=== PATIENT | female | born 1945 | race Caucasian/White ===

== ENCOUNTER 2019-06-29 11:42 | Inpatient (IN) | payer BC, MEDICARE ==
[2019-06-29] VITALS (8 sets, daily range): BP systolic 146–167; BP diastolic 64–91
[~2019-06-29] VITALS: Ht 167.6 cm; Wt 72.6 kg
[~2019-06-29 11:42] MED LIST: Z TEKTURNA HCT; Z.0.ALLEGRA180 MG; Z.0.ZOCOR40 MG; [UNRECOGNIZED DRUG - OTHER]
[2019-06-29 12:23] LABS: BASOPHILS # (AUTO) 0.1 (0.0-0.1); BASOPHILS % 0.8 % (0.0-1.0); EOSINOPHILS # (AUTO) 0.1 (0.0-0.4); EOSINOPHILS % 0.8 % (0.0-6.0); HEMATOCRIT 23.8 % (34.2-44.1); LYMPHOCYTES # (AUTO) 1.9 (1.0-3.2); LYMPHOCYTES % 23.8 % (18.0-39.1); MEAN CORPUSCULAR HEMOGLOBIN 15.4 pg (28-32); MEAN CORPUSCULAR HGB CONC 25.6 g/dL (31-35); MEAN CORPUSCULAR VOLUME 59.9 fL (81-99); MONOCYTES # (AUTO) 0.8 (0.2-0.8); MONOCYTES % 10.4 % (4.4-11.3); NEUTROPHILS # (AUTO) 5.1 (2.1-6.9); NEUTROPHILS % 63.7 % (38.7-80.0); PLATELET COUNT 419 x10e3/uL (140-360); RED BLOOD COUNT 3.97 x10e6/uL (3.6-5.1); RED CELL DISTRIBUTION WIDTH 21.1 % (11.7-14.4)
[2019-06-29 12:26] LABS: HEMOGLOBIN 6.1 g/dL (12.0-16.0)
[2019-06-29] MEDS ORDERED: FUROSEMIDE INJ 10 MG/ML 2 ML VIAL IV PRN (12:30)
[2019-06-29] MEDS ORDERED: SODIUM CHLORIDE 0.9% 250ML 250 ML IV ONE ×2 (12:30→16:30)
[2019-06-29 12:36] LABS: INR 1.03; PARTIAL THROMBOPLASTIN TIME 27.7 seconds (23.8-35.5)
[2019-06-29 12:42] LABS: ALANINE AMINOTRANSFERASE 9 IU/L (0-55); ALBUMIN 3.6 g/dL (3.5-5.0); ALBUMIN/GLOBULIN RATIO 0.9 (0.8-2.0); ALKALINE PHOSPHATASE 96 IU/L (40-150); ANION GAP 13.6 mmol/L (8-16); BLOOD UREA NITROGEN 15 mg/dL (7-26); BUN/CREATININE RATIO 19 (6-25); CALCIUM 9.4 mg/dL (8.4-10.2); CARBON DIOXIDE 24 mmol/L (22-29); CHLORIDE 101 mmol/L (98-107); CREATINE KINASE 80 IU/L (29-168); CREATININE, SERUM 0.78 mg/dL (0.57-1.11); EST GLOMERULAR FILTRATION RATE > 60 ML/MIN (60-); GLUCOSE 120 mg/dL (74-118); MAGNESIUM 1.9 MG/DL (1.3-2.1); POTASSIUM 3.6 mmol/L (3.5-5.1); SODIUM 135 mmol/L (136-145)
--- NOTE | 2019-06-29 13:09 | Diagnostic Imaging Report ---
EXAMINATION: CHEST SINGLE (PORTABLE) INDICATION: Trauma COMPARISON: None FINDINGS: LINES/TUBES:None LUNGS:The lungs are well-inflated. No focal consolidation or pulmonary edema. PLEURA:No pleural effusion or pneumothorax. MEDIASTINUM:The cardiomediastinal silhouette appears normal in size and shape. Atherosclerotic calcifications of the thoracic aorta. BONES/SOFT TISSUES:No acute osseous injury. ABDOMEN:No free air under the diaphragm. IMPRESSION: No radiographic evidence of acute traumatic injury to the thorax. Signed by: Alexey Paez MD on 06/29/2019 1:05 PM
--- NOTE | 2019-06-29 13:20 | Diagnostic Imaging Report ---
CT BRAIN WO HISTORY: Fall COMPARISON: None. Technique: Noncontrast axial scans were obtained from skull base to the vertex. Coronal and sagittal reconstructions obtained from the axial data. One or more of the following dose reduction techniques were used: Automated exposure control, adjustment of the mA and/or kV according to patient size, and/or utilization of iterative reconstruction technique. DISCUSSION: Scalp/Skull: Unremarkable. Brain sulci: Mildly prominent. Ventricles: Compensatory dilatation. Extra-axial spaces: No masses or fluid collections. Carotid siphon calcifications are present. Parenchyma: Mild bilateral deep white matter hypodensity is likely chronic microvascular ischemic change. Otherwise, no masses, hemorrhage, or large vascular territory acute infarct. Dural sinuses: No abnormal densities. Sellar/Suprasellar region: Intact. Skull base: Intact. Incidental findings: Bilateral ocular lens replacement. IMPRESSION: 1. No acute intracranial abnormalities. 2. Mild supratentorial chronic microvascular ischemic change. Mild generalized cerebral volume loss. Signed by: Dr. Drew Pryor M.D. on 06/29/2019 1:17 PM
[2019-06-29 13:22] LABS: BILIRUBIN,URINE NEGATIVE (NEGATIVE); CLARITY,URINE CLEAR (CLEAR); COLOR,URINE YELLOW (YELLOW); KETONES,URINE NEGATIVE (NEGATIVE); LEUKOCYTE ESTERASE ,URINE SMALL (NEGATIVE); NITRITE,URINE NEGATIVE (NEGATIVE); PROTEIN,URINE DIPSTICK NEGATIVE (NEGATIVE); URINE UROBILINOGEN 0.2 mg/dL (0.2 - 1)
--- NOTE | 2019-06-29 13:25 | Diagnostic Imaging Report ---
CT CERVICAL SPINE WO HISTORY: Fall COMPARISON: None. TECHNIQUE: CT of the cervical spine without contrast. Sagittal and coronal reformations were created. One or more of the following dose reduction techniques were used: Automated exposure control, adjustment of the mA and/or kV according to patient size, and/or utilization of iterative reconstruction technique. FINDINGS: Cervical lordosis is preserved. There is no significant scoliosis. No definite acute fracture or compression deformity is seen. The craniocervical junction is intact. No gross spinal canal masses are seen. The paravertebral and paraspinal soft tissues are unremarkable. Mild multilevel spondylotic changes are present. Multilevel bilateral facet arthrosis is associated with grade 1 anterolisthesis of C5 on C6. Mild atlantoaxial arthrosis is present as well. Mild to moderate bilateral carotid bulb calcified plaque is present. IMPRESSION: No acute osseous abnormalities. Mild multilevel spondylosis. Signed by: Dr. Drew Pryor M.D. on 06/29/2019 1:22 PM
[2019-06-29 13:43] LABS: BACTERIA,URINE RARE /HPF; WBC,URINE (MAN) 0-5 /HPF (0-5)
[2019-06-29 13:44] LABS: EPITHELIAL CELLS,URINE FEW /LPF
[2019-06-29 15:13] LABS: HYPOCHROMASIA SLIGHT; PLATELET ESTIMATE SLIGHTLY INCREASED; PLATELET MORPHOLOGY COMMENT NORMAL; RBC MORPHOLOGY COMMENT NORMAL
[2019-06-29 15:14] LABS: OVALOCYTES FEW
--- NOTE | 2019-06-29 15:43 | Diagnostic Imaging Report ---
EXAMINATION: FOOT RIGHT COMPLETE INDICATION: Trauma COMPARISON: None FINDINGS: No acute fracture or dislocation. Alignment is anatomic. Minimal scattered degenerative changes. Soft tissues appear unremarkable. IMPRESSION: No acute osseous injury. Signed by: Alexey Paez MD on 06/29/2019 3:40 PM
[2019-06-29] MEDS ORDERED: ACETAMINOPHEN/CODEINE 300MG - 30MG TAB PO ONE ×2 (16:15→16:30)
[2019-06-29] MEDS ORDERED: PANTOPRAZOLE 40 MG 10ML VIAL IV SCH (16:30)
--- NOTE | 2019-06-29 17:50 | NUR ---
RECEIVED PATIENT FROM ER. PATIENT A/O X3, EVEN RESPIRATIONS ON RA. LUNG SOUNDS CLEAR TO AUSCULTATION. TELEMETRY #29 SR 77. LEFT AC 20 GAUGE IV SL. PATIENT ON BEDREST AT THIS TIME. RIGHT ANKLE EDEMA AND BRUISING. NO PAIN VOICED AT THIS TIME. SKIN INTACT. ORIENTED PATIENT TO ROOM AND CALL LIGHT. BED LOW, WHEELS LOCKED, SIDE RAILS X2. CALL LIGHT IN REACH WILL CONTINUE TO MONITOR PATIENT.
--- OUTSIDE RECORDS SUMMARY | 2019-06-29 18:06 | XMS REPORT ---
Author [facility] Address Unknown Phone Unavailable Care Team Providers Care Technical Sourcing Recruiter Name Role Phone Divina RAMESH Unavailable Unavailable Problems This patient has no known problems. Allergies, Adverse Reactions, Alerts This patient has no known allergies or adverse reactions. Medications This patient has no known medications. Results Test Description Test Time Test Comments Text Results Atomic Results Result Comments FOOT RIGHT COMPLETE 2019-06-29 14:54:00 [place] [address] Patient Name: DOUG GOMEZ MR #: [id number] : 1945 Age/Sex: 73/F Req #: [id number] Adm Physician: Ordered by: LOUANN ROSE NP Report #: [id number] Location: ER Room/Bed: Procedure: [id number] DX/FOOT RIGHT COMPLETE Exam Date: 06/29/19 Exam Time: 1230 REPORT STATUS: Signed EXAMINATION: FOOT RIGHT COMPLETE INDICATION: Trauma COMPARISON: None FINDINGS: No acute fracture or dislocation. Alignment is anatomic. Minimal scattered degenerative changes. Soft tissues appear unremarkable. IMPRESSION: No acute osseous injury. Signed by: Patrick Mccarthy MD on 06/29/2019 3:40 PM Dictated By: PATRICK MCCARTHY MD [id number] Transcribed By: ZOIE on 06/29/19 7098 COPY TO: LOUANN ROSE NP CT CERVICAL SPINE WO 2019-06-29 13:17:00 [place] [address] Patient Name: DOUG GOMEZ MR #: [id number] : 1945 Age/Sex: 73/F Req #: [id number] Adm Physician: Ordered by: LOUANN ROSE NP Report #: [id number] Location: ER Room/Bed: Procedure: [id number] CT/CT CERVICAL SPINE WO Exam Date: 06/29/19 Exam Time: 1230 REPORT STATUS: Signed CT CERVICAL SPINE WO HISTORY: Fall COMPARISON : None. TECHNIQUE: CT of the cervical spine without contrast. Sagittal and coronal reformations were created. One or more of the following dose reduction techniques were used: Automated exposure control, adjustment of the mA and/or kV according to patient size, and/or utilization of iterative reconstruction technique. FINDINGS: Cervical lordosis is preserved. There is no significant scoliosis. No definite acute fracture or compression deformity is seen. The craniocervical junction is intact. No gross spinal canal masses are seen. The paravertebral and paraspinal soft tissues are unremarkable. Mild multilevel spondylotic changes are present. Multilevel bilateral facet arthrosis is associated with grade 1 anterolisthesis of C5 on C6. Mild atlantoaxial arthrosis is present as well. Mild to moderate bilateral carotid bulb calcified plaque is present. IMPRESSION: No acute osseous abnormalities. Mild multilevel spondylosis. Signed by: Dr. Drew Pryor M.D. on 06/29/2019 1:22 PM Dictated By: DREW PRYOR MD 1322 Transcribed By: ZOIE on 06/29/19 1322 COPY TO: LOUANN ROSE NP CT BRAIN WO 2019-06-29 13:15:00 [place] [address] Patient Name: DOUG GOMEZ MR #: [id number] : 1945 Age/Sex: 73/F Req #: [id number] Adm Physician: Ordered by: LOUANN ROSE REAL ESTATE RECRUITER Report #: [id number] Location: ER Room/Bed: Procedure: [id number] CT/CT BRAIN WO Exam Date: 06/29/19 Exam Time: 1230 REPORT STATUS: Signed CT BRAIN WO HISTORY: Fall COMPARISON: None. Te chnique: Noncontrast axial scans were obtained from skull base to the vertex. Coronal and sagittal reconstructions obtained from the axial data. One or more of the following dose reduction techniques were used: Automated exposure control, adjustment of the mA and/or kV according to patient size, and/or utilization of iterative reconstruction technique. DISCUSSION: Scalp/Skull: Unremarkable. Brain sulci: Mildly prominent. Ventricles: Compensatory dilatation. Extra-axial spaces: No masses or fluid collections. Carotid siphon calcifications are present. Parenchyma: Mild bilateral deep white matter hypodensity is likely chronic microvascular ischemic change. Otherwise, no masses, hemorrhage, or large vascular territory acute infarct. Dural sinuses: No abnormal densities. Sellar/Suprasellar region: Intact. Skull base: Intact. Incidental findings: Bilateral ocular lens replacement. IMPRESSION: 1. No acute intracranial abnormalities. 2. Mild supratentorial chronic microvascular ischemic change. Mild generalized cerebral volume loss. Signed by: Dr. Drew Pryor M.D. on 06/29/2019 1:17 PM Dictated By: DREW PRYOR MD 16 Transcribed By: ZOIE on 06/29/191316 COPY TO: LOUANN ROSE NP CHEST SINGLE (PORTABLE) 2019-06-29 13:04:00 [place] [address] Patient Name: DOUG GOMEZ MR #: [id number] : 1945 Age/Sex: 73/F Req #: [id number] Adm Physician: Ordered by: LOUANN ROSE NP Report #: [id number] Location: ER Room/Bed: Procedure: [id number] DX/CHEST SINGLE (PORTABLE) Exam Date: Exam Time: REPORT STATUS: Signed EXAMINATION: CHEST SINGLE (PORTABLE) INDICATION: Tra suhail COMPARISON: None FINDINGS: LINES/TUBES:None LUNGS:The lungs are well-inflated. No focal consolidation or pulmonary edema. PLEURA:No pleural effusion or pneumothorax. MEDIASTINUM:The cardiomediastinal silhouette appears normal in size and shape. Atherosclerotic calcifications of the thoracic aorta. BONES/SOFT TISSUES:No acute osseous injury. ABDOMEN:No free air under the diaphragm. IMPRESSION: No radiographic evidence of acute traumatic injury to the thorax. Signed by: Patrick Mccarthy MD on 06/29/2019 1:05 PM Dictated By: PATRICK MCCARTHY MD 04 Transcribed By: ZOIE on 06/29/191304 COPY TO: LOUANN ROSE NP
[2019-06-29] MEDS: PANTOPRAZOLE 40 MG 10ML VIAL IV SCH (18:50)
--- NOTE | 2019-06-29 19:00 | NUR ---
RECEIVED PATIENT IN BEDSIDE REPORT. PATIENT RESTING IN BED. NO PAIN REPORTED PATIENT RECENTLY RECEIVED PAIN MEDICATION. NO S&S OF DISTRESS NOTED. BED LOCKED IN LOWEST POSITION, SIDE RAILS UPX2, CALL LIGHT IN REACH.
[2019-06-29 19:38] LABS: CREATINE KINASE MB 1.8 ng/mL (0-5.0)
[2019-06-29] MEDS ORDERED: RANEXA500 MG PO (20:32)
[2019-06-29] MEDS ORDERED: ASPIRIN EC81 MG PO (20:32)
[2019-06-29] MEDS ORDERED: ATORVASTATIN CA20 MG PO (20:32)
[2019-06-29] MEDS ORDERED: EFFIENT10 MG PO (20:32)
[2019-06-29] MEDS ORDERED: METOPROLOL TART50 MG PO (20:32)
--- NOTE | 2019-06-29 20:39 | NUR ---
PAGED MD Sarah TORRES FOR ORDERS. AWAITING CALL BACK.
[2019-06-29] MEDS ORDERED: SODIUM CHLORIDE 0.9% 250ML 500 ML ONE (21:22)
--- NOTE | 2019-06-29 22:48 | NUR ---
FIRST UNIT OF BLOOD STARTED AT THIS TIME. VERIFIED BY THIS NURSE AND Dave FLEMING RN. NO S&S OF TRANSFUSION REACTION NOTED. TRANSFUSION RUNNING AT 80 ML/HR.
[2019-06-29] MEDS: ACETAMINOPHEN/CODEINE 300MG - 30MG TAB PO PRN (23:20)
[2019-06-30] VITALS (15 sets, daily range): BP systolic 122–175; BP diastolic 61–91
--- NOTE | 2019-06-30 00:01 | NUR ---
PATIENT'S TEMP AT 2348, ONE HOUR AFTER STARTING BLOOD TRANSFUSION NOTED TO BE 99.9, UP FROM 99.5 JUST PRIOR TO START OF TRANSFUSION. REMOVED EXTRA BLANKETS. RECHECKED TEMP AT THIS TIME, NOTED TO BE 99.0. NO REACTIONS NOTED. WILL CONTINUE TO MONITOR CLOSELY.
[2019-06-30] MEDS: FUROSEMIDE INJ 10 MG/ML 2 ML VIAL IV PRN ×2 (01:40→05:15)
--- NOTE | 2019-06-30 01:40 | NUR ---
FIRST UNIT OF BLOOD COMPLETED AT THIS TIME. 296 ML TRANSFUSED. NO REACTIONS NOTED. LASIX 20 MG IV ADMINISTERED POST TRANSFUSION PER ORDERS. ADDITIONAL UNIT TO INFUSE.
--- NOTE | 2019-06-30 02:40 | NUR ---
SECOND UNIT OF BLOOD STARTED TRANSFUSING AT THIS TIME. VERIFIED BY THIS NURSE AND Dave FLEMING RN. NO S&S OF TRANSFUSION REACTION NOTED.
--- NOTE | 2019-06-30 05:10 | NUR ---
2ND UNIT OF PRBCS COMPLETED AT THIS TIME. 287 ML TRANSFUSED. NO S&S OF TRANSFUSION REACTION NOTED. 20MG LASIX IV ADMINISTERED PER ORDERS.
--- NOTE | 2019-06-30 07:15 | NUR ---
Rcvd patient in report this am. patient is asleep in bed at this time. no s/s of distress noted
[2019-06-30] MEDS: ACETAMINOPHEN/CODEINE 300MG - 30MG TAB PO PRN ×2 (08:18→16:19)
[2019-06-30] MEDS: PANTOPRAZOLE 40 MG 10ML VIAL IV SCH (08:21)
[2019-06-30 08:28] LABS: BASOPHILS # (AUTO) 0.1 (0.0-0.1); BASOPHILS % 0.8 % (0.0-1.0); EOSINOPHILS # (AUTO) 0.2 (0.0-0.4); EOSINOPHILS % 2.1 % (0.0-6.0); HEMATOCRIT 33.3 % (34.2-44.1); HEMOGLOBIN 9.2 g/dL (12.0-16.0); LYMPHOCYTES % 27.6 % (18.0-39.1); MEAN CORPUSCULAR HEMOGLOBIN 18.1 pg (28-32); MEAN CORPUSCULAR HGB CONC 27.6 g/dL (31-35); MEAN CORPUSCULAR VOLUME 65.4 fL (81-99); MONOCYTES # (AUTO) 0.9 (0.2-0.8); MONOCYTES % 12.9 % (4.4-11.3); NEUTROPHILS # (AUTO) 4.1 (2.1-6.9); PLATELET COUNT 334 x10e3/uL (140-360); RED BLOOD COUNT 5.09 x10e6/uL (3.6-5.1); RED CELL DISTRIBUTION WIDTH 25.5 % (11.7-14.4)
[2019-06-30 08:49] LABS: ALANINE AMINOTRANSFERASE 8 IU/L (0-55); ALBUMIN 3.7 g/dL (3.5-5.0); ALBUMIN/GLOBULIN RATIO 0.9 (0.8-2.0); ALKALINE PHOSPHATASE 102 IU/L (40-150); ANION GAP 19.7 mmol/L (8-16); BLOOD UREA NITROGEN 12 mg/dL (7-26); BUN/CREATININE RATIO 13 (6-25); CALCIUM 9.4 mg/dL (8.4-10.2); CARBON DIOXIDE 25 mmol/L (22-29); CHLORIDE 97 mmol/L (98-107); CREATININE, SERUM 0.89 mg/dL (0.57-1.11); EST GLOMERULAR FILTRATION RATE > 60 ML/MIN (60-); GLUCOSE 107 mg/dL (74-118); POTASSIUM 3.7 mmol/L (3.5-5.1); SODIUM 138 mmol/L (136-145)
[2019-06-30 10:45] LABS: ANISOCYTOSIS MODERATE; HYPOCHROMASIA MODERATE; MICROCYTOSIS MODERATE; POIKILOCYTOSIS SLIGHT
[2019-06-30 10:46] LABS: ELLIPTOCYTE, RBC SLIGHT; PLATELET ESTIMATE ADEQUATE; RBC MORPHOLOGY COMMENT ABNORMAL; TEAR DROP CELLS FEW
[2019-06-30 10:47] LABS: PLATELET MORPHOLOGY COMMENT NORMAL; TARGET CELLS FEW
[2019-06-30 12:33] LABS: FREE THYROXINE INDEX 2.8405 (1.4-3.8); THYROID STIMULATING HORMONE 2.423 uIU/mL (0.350-4.940)
[2019-06-30] MEDS ORDERED: TYLENOL WITH C1 EACH PO (15:55)
--- NOTE | 2019-06-30 16:31 | NUR ---
IV removed at this time. Pressure dressing applied
--- NOTE | 2019-06-30 16:50 | NUR ---
Patient discharged from facility to home. Patient assisted out via staff in her wheelchair. Patient provided a surgical shoe. Reviewed discharge paperwork, follow up appts and RX's given.
--- NOTE | 2019-06-30 21:44 | Consultation ---
DATE OF CONSULTATION: 06/30/2019 REASON FOR CONSULTATION: Swelling and pain to the right foot after the patient falling from a syncope event yesterday. HISTORY OF PRESENT ILLNESS: A pleasant 73-year-old white female, who was seen at bedside accompanied by son, relates that she fell after getting a pneumonia shot and was found to be anemic when she was admitted through the hospital and was given a couple of units of blood. She has an ecchymotic very painful right foot, is not able to put any weight on it, has pain upon range of motion. PAST MEDICAL HISTORY: Remarkable for hypercholesterolemia and hypertension. PAST SURGICAL HISTORY: Remarkable for 3 heart stents, 2 different surgical interventions, appendectomy with tonsillectomy. SOCIAL HISTORY: No smoking, drinking, or recreational drug use. ALLERGIES: TO SULFA. FAMILY HISTORY: Noncontributory. CURRENT MEDICATIONS: Note listed in chart. REVIEW OF SYSTEMS: CARDIAC: Denies any palpitations or arrhythmias. RESPIRATORY: Denies any shortness of breath or productive cough. GASTROINTESTINAL: Denies any diarrhea or constipation. URINARY: Denies hematuria or problems voiding. LABORATORY DATA: Noted. She has a white blood cell count of 7.27, hemoglobin 9.2 after getting couple units of blood. She has a blood glucose of 107. X-rays were reviewed revealing a possible stress fracture to the 5th metatarsal shaft close to the tuberosity area. X-rays evaluated. PHYSICAL EXAMINATION: VITAL SIGNS: Afebrile, pulse rate 87, respirations 18, blood pressure 122/63, O2 saturation 98%. PODIATRIC: Reveals the following vasculature, pedal pulses of both the DP and PT are palpable. NEUROLOGIC: Seems to be within normal limits. MUSCULOSKELETAL: Muscle mass is asymmetrical. Some swelling and tenderness noted to the right foot with ecchymosis noted and pain overlying the 5th metatarsal tuberosity midtarsal joint area. DERMATOLOGIC: No breaks in the skin noted. ASSESSMENT: Stress fracture, 5th metatarsal with ecchymosis capsulitis. PLAN: An [place] bandage was applied, surgical shoe will be dispensed. The patient instructed to limit her weightbearing. We will follow up within the next 1 to 2 weeks for re-x-ray to evaluate healing. Okay to go home if okay with Dr. Bruno. GRACIELA Lala/OTILIOL /[id number]
--- NOTE | 2019-06-30 23:50 | Consultation ---
DATE OF CONSULTATION: 06/30/2019 HISTORY OF PRESENT ILLNESS: Yolie Walsh is a 73-year-old white female, referred to me for evaluation of anemia. The patient claimed that she had pneumonia vaccine at the pharmacy subsequently she passed out. Subsequently, was rushed to the ER, was found to be very anemic. Subsequently referred to me for further evaluation and treatment after having had two blood transfusions. HISTORY OF PAST ILLNESS: History of anemia. The patient claimed that she was at [place] approximately five years back for the same problem and had colonoscopy as the patient claimed that she does not remember which physician did a colonoscopy. According to her, the patient did have a normal colonoscopy. SOCIAL HISTORY: Noncontributory. FAMILY HISTORY: Noncontributory. ALLERGIES: REPORTED NONE. MEDICATIONS: At this time: 1. Tylenol with codeine. 2. Protonix. 3. Lasix. 4. Sodium chloride. REVIEW OF SYSTEMS: HEENT: Normal. CARDIAC: Normal. RESPIRATORY: Normal. GI : According to her normal. : Normal. MUSCULOSKELETAL: Normal. SKIN AND BREASTS: Normal. NEUROENDOCRINE: Essentially normal. DIETARY HISTORY: Breakfast is coffee and a toast, lunch is salad, evening meals usually have meat. PHYSICAL EXAMINATION: GENERAL: A moderately built female, very anemic no palpable adenopathy. HEART: Within normal limits. LUNGS: Clear. BREASTS: Normal. ABDOMEN: Soft. RECTAL AND VAGINAL: Deferred. CENTRAL NERVOUS SYSTEM: Essentially normal. EXTREMITIES: Essentially normal. LABORATORY DATA: Shows a hemoglobin of 6.1, hematocrit of 23.8, MCV 59.9, MCHC 25.6, RDW 21.1, platelets high at 419,000 with a white count of 7970 with the differential being normal. Retic response is low at 0.8%. Chemistry shows a sodium of 135, potassium 3.6, chloride is 101, CO2 24, BUN 15, creatinine 0.78, glucose 120, calcium 9.4, magnesium 1.9, bilirubin 1.5, SGOT 17, SGPT 9, alkaline phosphatase 96, total protein 7.7, albumin 3.6, globulins 4.1. CAT scan of the brain is reported normal. CAT scan of the cervical spine is reported normal. Chest x-ray reported normal. X-ray of the foot reported normal. IMPRESSION: 1. Iron deficiency anemia. 2. Syncope because of iron deficiency. PLAN: This is pure iron-deficiency anemia. I will suggest INFeD as outpatient. I will calculate out the dose of the INFeD. A CT scan of the abdomen and pelvis is suggested. Upper and lower endoscopies are suggested as outpatient. Thank you very much for allowing me to participate in management of this patient. Radha Pollcak MD MAQ/MODL /[id number] cc: Frederick Bruno MD
== END 2019-06-30 17:05 | disposition home or self-care (01) | DRG 812 ==
LOC: ER 11:42 → ERHOLD 16:29 → ER 17:51 → MED/SURG 18:05
PROC: 30233N1 Transfusion of Nonautologous Red Blood Cells into Peripheral Vein, Percutaneous Approach (ICD-10-PCS; principal; 2019-06-29)
DX: D50.9 Iron deficiency anemia, unspecified (principal); R55 Syncope and collapse; D64.9 Anemia, unspecified; M84.374A Stress fracture, right foot, initial encounter for fracture; M77.41 Metatarsalgia, right foot; W19.XXXA Unspecified fall, initial encounter; E78.5 Hyperlipidemia, unspecified; I10 Essential (primary) hypertension
CPT/HCPCS: 36415; 70450; 71045; 72125; 80053; 81001; 82270; 82550; 82553; 82607; 83540; 83735; 83880; 84436; 84443; 84466; 84479; 84484; 85025; 85045; 85610; 85730; 86850; 86900; 86920; 93005; 99284; J1940; J7050; P9016

== ENCOUNTER 2019-12-31 10:46 | Inpatient (IN) | payer MEDICARE, OTHER ==
[~2019-12-31] VITALS: Ht 167.6 cm; Wt 74.4 kg
[~2019-12-31 10:46] MED LIST changes: +ASPIRIN EC81 MG PO; +ATORVASTATIN CA20 MG PO; +EFFIENT10 MG PO; +METOPROLOL TART50 MG PO; +RANEXA500 MG PO; +TYLENOL WITH C1 EACH PO
--- OUTSIDE RECORDS SUMMARY | 2019-12-31 10:52 | XMS REPORT ---
Author Author [facility] t Organization [facility] Address [address] [place] [address] Phone Unavailable Care Team Providers Care Mental Hygienist Name Role Phone NO, PCP PCP Unavailable Ferdinand Alanis MD Attphys PIPPA AHN Attphys Unavailable Divina RAMESH Attphys Unavailable Payers Payer Name Policy Type Policy Number Effective Date Expiration Date S conor MEDICAREMEDICARE PART A AND Bxxxxxxxxxxx/08/2012-[place] 2013 00:00:00 [facility] Medicare A & B [id number] 2013 00:00:[address] [facility] Problems Condition Name Condition Details Condition Category Status Onset Date Resolution Date Last Treatment Date Treating Clinician Comments Source Celiac artery stenosis Celiac artery stenosis Disease Active 2019-09-27 00:00:00 Last Assessment & Plan: Patient with asymptomatic celiac artery stenosis. Medical management sounds good. She will return to our clinic as needed. Donnie Yazidi Anemia Anemia Problem Active [facility] Syncope Syncope Problem Active [facility] Allergies, Adverse Reactions, Alerts Allergy Name Allergy Type Status Severity Reaction(s) Onset Date Inacti ve Date Treating Clinician Comments Source Sulfa (Sulfonamide Antibiotics) Propensity to adverse reactions to drug Active Rash, Other (See Comments) 2019-09-27 00:00:00 Organ failure [place] [facility] SULFA Allergy to Substance Active Severe ORGAN SHUTDOWN 2011-02-28 0 0:00:[address] [facility] Family History Family Member Diagnosis Comments Start Date Stop Date Source Natural brother Cancer [facility] ethodist Natural father Alzheimer's disease [place] Natural mother Cancer [facility] Natural sister Cancer [place] [facility] Social History Social Habit Start Date Stop Date Quantity Comments Source History SDOH Alcohol Std Drinks Donnie Hernandezist History SDOH Alcohol Binge Donnie Marion Sex Assigned At [place] Alcohol intake 2019-09-27 00:00:00 2019-09-27 00:00:00 Ex-drinker (fi nding) Donnie Hernandezist History SDOH Alcohol Frequency 2019-09-27 00:00:00 2019-09-27 00:00:0 0 1 Donnie Marion Smoking Status Start Date Stop Date Source Never smoker Donnie lieberman Medications Ordered Medication Name Filled Medication Name Start Date Stop Da te Current Medication? Ordering Clinician Indication Dosage Frequency Signature (SIG) Comments Components Source omeprazole/sodium bicarbonate (ZEGERID ORAL) 2019-09-27 14:40:30 Yes Take by mouth. Donnie lieberman aspirin (ECOTRIN) 81 MG enteric coated tablet 2019-09-27 14:40:3 0 Yes 81mg QD Take 81 mg by mouth daily. H milo Marion prasugreL (EFFIENT) 10 mg tablet 2019-08-12 00:00:00 Yes Donnie Marion atorvastatin (LIPITOR) 40 MG tablet 2019-08-12 00:00:00 Yes Donnie Marion metoprolol tartrate (LOPRESSOR) 50 mg tablet 2019-08-12 00:00:00 Yes Donnie lieberman Acetaminophen With Codeine (Tylenol With Codeine #3 Ta blet) 1 Each Tablet Acetaminophen With Codeine (Tylenol With Codeine #3 Tablet) 1 Each Tablet Yes 300 Every 6 Hours as needed for Mild Pain (1 -3) Or Fever>100.[address] [facility] Aspirin (Aspirin Ec) 81 Mg Tablet. Aspirin (Aspirin Ec) 81 Mg Tab let. Yes [address] [facility] Atorvastatin Calcium 20 Mg Tablet Atorvastatin Calcium 20 Mg Tablet Yes 40 Twice A Day [facility] Metoprolol Tartrate 50 Mg Tablet Metoprolol Tartrate 50 Mg Tablet Yes 50 Twice A Day [facility] Prasugrel Hcl (Effient) 10 Mg Tablet Prasugrel Hcl (Effient) 10 Mg Tablet Yes [address] [facility] Ranolazine (Ranexa) 500 Mg Tabsr Ranolazine (Ranexa) 500 Mg Tabsr Yes 500 Twice A Day [facility] Aliskiren/Hydrochlorothiazide (Tekturna Hct 150-12.5 M g Tab) 1 Each Tablet, Aliskiren/Hydrochlorothiazide (Tekturna Hct 150-12.5 Mg Tab) 1 Each Tablet, 2019-06-29 00:00:00 No Daily [facility] Esomeprazole Sodium (Nexium I.v.) 40 Mg Vial, Esomepra zole Sodium (Nexium I.v.) 40 Mg Vial, 2019-06-29 00:00:00 No Daily [facility] Fexofenadine Hcl (Kristi) 180 Mg Tablet, Fexofenadine Hcl (Kristi) 180 Mg Tablet, 2019-06-29 00:00:00 No Daily [facility] Simvastatin (Zocor) 40 Mg Tablet, Simvastatin (Zocor) 40 Mg Tabl et, 2019-06-29 00:00:00 No Daily [facility] Vital Signs Vital Name Observation Time Observation Value Comments Source Systolic blood pressure 2019-09-27 14:33:00 163 mm[Hg] [place] [facility] Diastolic blood pressure 2019-09-27 14:33:00 87 mm[Hg] [facility] Heart rate 2019-09-27 14:33:00 89 /min [facility] Body temperature 2019-09-27 14:33:00 36.83 [place] [facility] Body height 2019-09-27 14:33:00 165.1 cm [facility] Body weight 2019-09-27 14:33:00 78.2 kg [facility] BMI 2019-09-27 14:33:00 28.69 kg/m2 [facility] Procedures Procedure Date / Time Performed Performing Clinician [facility] e CT ABD/PELVIC EXTERNAL STUDY 2019-08-09 08:38:00 Chetna Alanis in [facility] Computed tomography of brain without radiopaque contrast 201 04-14-26 00:00:[address] [facility] Computed tomography of cervical spine without contrast 06-29 00:00:[address] [facility] Plan of Care Planned Activity Planned Date Details Comments Source Future Scheduled Test 2020-03-04 00:00:00 INFLUENZA VACCINE [code = INFLUENZA VACCINE] [facility] Future Scheduled Test 2012-11-12 00:00:00 65+ PNEUMOCOCCAL V ACCINE (2 of 2 - PPSV23) [code = 65+ PNEUMOCOCCAL VACCINE (2 of 2 - PPSV23)] [facility] Future Scheduled Test 1997-11-12 00:00:00 BREAST CANCER SCRE ENING [code = BREAST CANCER SCREENING] [facility] Future Scheduled Test 1997-11-12 00:00:00 COLONOSCOPY SCREEN ING [code = COLONOSCOPY SCREENING] [facility] Future Scheduled Test 1997-11-12 00:00:00 SHINGLES VACCINES (#1) [code = SHINGLES VACCINES (#1)] [facility] Encounters Start Date/Time End Date/Time Encounter Type Admission Type Attendi [facility] Care Department Encounter ID Source 2019-10-04 00:00:00 2019-10-04 00:00:00 Outpatient [facility] [id number] [facility] 2019-09-27 00:00:00 2019-09-27 00:00:00 Outpatient CHETNA ALANIS [facility] [id number] [facility] 2019-06-29 16:29:00 2019-06-30 17:05:00 Discharged Inpatient [address] [facility] [id number] [facility] Results Test Description Test Time Test Comments Results Result Comments Source CT Abd/Pelvic External Study 2019-10-04 09:49:08 This exam was not acquired at a Yazidi facility and has not been interpreted by a Yazidi Provider. The exam was imported into our imaging system[facility] W 2019-08-09 11:25:00 [facility] [address] [place] [address] Patient Name: DOUG GOMEZ MR #: [id number] : 1945 Age/Sex: 73/F Req #: [id number] Adm Physician: Ordered by: PIPPA AHN MD Report #: [id number] Location: CT Room/Bed: Procedure: [id number] CT/CT ABDOMEN/PELVIS W Exam Date: 08/09/19 Exam Time: 829 REPORT STATUS: Signed EXAM: CT Abdomen and Pelvis WITH intravenous contrast INDICATION: Anemia COMPARISON: None. TECHNIQUE: Abdomen and pelvis were scanned utilizing a multidetector helical scanner from the lung base to the pubic symphysis after administration of IV contrast. Coronal and sagittal reformations were obtained. Routine protocol was performed. Scan was performed during portal venous phase. IV CONTRAST: 100mL of Isovue 370 ORAL CONTRAST: Water RADIATION DOSE: Total DLP: 475.6 mGy*cm Dose modulation, iterative reconstruction, and/or weight based adjustment of the mA/kV was utilized to reduce the radiation dose to as low as reasonably achievable. FINDINGS: LOWER THORAX: Bibasilar subsegmental atelectasis. HEPATOBILIARY: Mild diffuse hepatic steatosis. No focal liver lesions. No biliary ductal dilation. Unremarkable gallbladder. SPLEEN: No splenomegaly. PANCREAS: No focal masses or ductal dilatation. ADRENALS: No adrenal nodules. KIDNEYS/URETERS: No hydronephrosis, stones, or solid mass lesions. PELVIC ORGANS/BLADDER: Unremarkable. PERITONEUM / RETROPERITONEUM: No free air or fluid. LYMPH NODES: No lymphadenopathy. VESSELS: Moderate atherosclerotic calcifications of the abdominal aorta and major branches. Focal atherosclerotic plaque at the celiac origin resulting in critical stenosis of the celiac artery. There is distal reconstitution, likely from collaterals from the SMA. GI TRACT: No abnormal bowel thickening. No bowel obstruction. BONES AND SOFT TISSUES: No acute osseous injury. No suspicious lytic or blastic lesions. Mild degenerative changes of the visualized spine. IMPRESSION: No acute findings in the abdomen or pelvis. Mild diffuse hepatic steatosis. Focal atherosclerotic plaque at the celiac origin resulting in critical stenosis. Signed by: Patrick Mccarthy MD on 08/09/2019 11:32 AM Dictated By: PATRICK MCCARTHY MD 1132 Transcribed By: ZOIE on 08/09/19 1132 COPY TO: PIPPA ANH MD Vitamin B12 Level 2019-06-30 12:49:00 Test Item Vitamin B12 Level (test code = 42925-9) [address] Thyroxine Ekpsu3952-81-08 12:38:00* Test Item Value Reference Range Interpretation Comments Free Thyroxine Index (test code = 84785-9) 2.8405 1.4-3.[address] [facility] HospitalThyroxine (T4)2019-06-30 12:38:00* Test Item Value Reference Range Interpretation Comments Thyroxine (T4) (test code = 3026-2) 8.70 4.5-10.9 Our current method for Total T4 is not recommended for use as the only marker fo r evaluating patients for thyroid disorders.[facility] HospitalTriiodothyronine (T3) Hwzxjx2151-05-74 12:38:00* Test Item Value Reference Range Interpretation Comments Triiodothyronine (T3) Uptake (test code = 3050-2) 32.65 22.5 -37.[address] [facility] HospitalThyroid Stimulating Hormone (TSH) 2019-06-30 12:38:00* Test Item Value Reference Range Interpretation Comments Thyroid Stimulating Hormone (TSH) (test code = 06272-7) 2.423 0.350-4.[address] HospitalIron Reoxy1522-11-73 12:15:00* Test Item Value Reference Range Interpretation Comments Iron Level (test code = 2498-4) 21 50-[address] [facility] HospitalTotal Iron Binding Iiuoejry1945 12:15:00* Test Item Value Reference Range Interpretation Comments Total Iron Binding Capacity (test code = 2500-7) 498 261-[address] [facility] HospitalPercent Iron Djbhsujcrq3704-21-36 12:15:00* Test Item Value Reference Range Interpretation Comments Percent Iron Saturation (test code = 2502-3) 4 15-[address] [facility] HospitalTransferrin2019-11-27 12:15:00* Test Item Value Reference Range Interpretation Comments Transferrin (test code = 3034-6) 356 180-[address] [facility] HospitalPercent Reticulocyte Ecwzg6880-77-80 12:00:00* Test Item Value Reference Range Interpretation Comments Percent Reticulocyte Count (test code = 56365-2) 0.8 0.8-[address] [facility] HospitalPlatelet Lwumfopv7612-02-06 10:49:00* Test Item Value Reference Range Interpretation Comments Platelet Estimate (test code = 05644-2) ADEQUATE [facility] HospitalPlatelet Morphology Jbfcmqg3312-40-54 10:49:00* Test Item Value Reference Range Interpretation Comments Platelet Morphology Comment (test code = 10885-9) NORMAL [facility] HospitalHypochromasia2019-11-27 10:49:00* Test Item Value Reference Range Interpretation Comments Hypochromasia (test code = 728-6) MODERATE [facility] HospitalPoikilocytosis2019-11-27 10:49:00* Test Item Value Reference Range Interpretation Comments Poikilocytosis (test code = 779-9) SLIGHT [facility] HospitalAnisocytosis2019-11-27 10:49:00* Test Item Value Reference Range Interpretation Comments Anisocytosis (test code = 702-1) MODERATE [facility] HospitalMicrocytosis2019-11-27 10:49:00* Test Item Value Reference Range Interpretation Comments Microcytosis (test code = 741-9) MODERATE [facility] HospitalTarget Voqxm1190-67-45 10:49:00* Test Item Value Reference Range Interpretation Comments Target Cells (test code = 26721-3) FEW [facility] HospitalTear Drop Hlxdi0564-53-84 10:49:00* Test Item Value Reference Range Interpretation Comments Tear Drop Cells (test code = 7791-7) FEW [facility] HospitalElliptocytes2019-11-27 10:49:00* Test Item Value Reference Range Interpretation Comments Elliptocytes (test code = 71054-3) SLIGHT [facility] HospitalRed Cell Morphology Imdddbm4409-98-04 10:49:00* Test Item Value Reference Range Interpretation Comments Red Cell Morphology Comment (test code = 6742-1) ABNORMAL [facility] Wulsy9252-79-10 08:51:00* Test Item Value Reference Range Interpretation Comments Sodium Level (test code = 2951-2) 138 136-[address] [facility] HospitalPotassium Crkwp1463-00-35 08:51:00* Test Item Value Reference Range Interpretation Comments Potassium Level (test code = 2823-3) 3.7 3.5-5.[address] HospitalChloride Phiju0543-97-76 08:51:00* Test Item Value Reference Range Interpretation Comments Chloride Level (test code = 2075-0) 97 98-[address] HospitalCarbon Dioxide Xenur0131-14-75 08:51:00* Test Item Value Reference Range Interpretation Comments Carbon Dioxide Level (test code = 2028-9) [facility] HospitalAnion Zln0952-98-70 08:51:00* Test Item Value Reference Range Interpretation Comments Anion Gap (test code = 52016-1) 19.7 8-[address] [facility] HospitalBlood Urea Qxdtudbe5698-85-09 08:51:00* Test Item Value Reference Range Interpretation Comments Blood Urea Nitrogen (test code = 3094-0) 12 02-[address] HospitalCreatinine2019-11-27 08:51:00* Test Item Value Reference Range Interpretation Comments Creatinine (test code = 2160-0) 0.89 0.57-1.[address] [facility] HospitalBUN/Creatinine Bfwgw6855-06-58 08:51:00* Test Item Value Reference Range Interpretation Comments BUN/Creatinine Ratio (test code = 3097-3) 13 01-[address] [facility] HospitalEstimat Glomerular Filtration Rate 2019-06-30 08:51:00* Test Item Value Reference Range Interpretation Comments Estimat Glomerular Filtration Rate (test code = 963031457) > 60 >60 Ranges were taken from the National Kidney Disease Education Program and the [facility] and the [facility] literature.Reference ranges:60 or greater: Veqhqz01-22 ( for 3 consecutive months): Chronic kidney disease 15 or less: Kidney failureCHI St[facility] HospitalGlucose Dqrou1197-73-19 08:51:00* Test Item Value Reference Range Interpretation Comments Glucose Level (test code = LIX0130) 107 74-[address] HospitalCalcium Islbg3323-91-99 08:51:00* Test Item Value Reference Range Interpretation Comments Calcium Level (test code = 55908-1) 9.4 8.4-10.[address] [facility] HospitalTotal Hmlxhuypm3264-13-48 08:51:00* Test Item Value Reference Range Interpretation Comments Total Bilirubin (test code = 1975-2) 1.0 0.2-1.[address] [facility] HospitalAspartate Amino Transf (AST/SGOT) 2019-06-30 08:51:00* Test Item Value Reference Range Interpretation Comments Aspartate Amino Transf (AST/SGOT) (test code = Aspartate Amino Transf (AST/SGOT)) 17 5-[address] [facility] HospitalAlanine Aminotransferase (ALT/SGPT) 2019-06-30 08:51:00* Test Item Value Reference Range Interpretation Comments Alanine Aminotransferase (ALT/SGPT) (test code = 1742-6) 8 0-55 [facility] Zzpaayi1772-27-01 08:51:00* Test Item Value Reference Range Interpretation Comments Total Protein (test code = 2885-2) 8.0 6.5-8.[address] [facility] HospitalAlbumin2019-11-27 08:51:00* Test Item Value Reference Range Interpretation Comments Albumin (test code = 1751-7) 3.7 3.5-5.[address] [facility] HospitalGlobulin2019-11-27 08:51:00* Test Item Value Reference Range Interpretation Comments Globulin (test code = 12119-7) 4.3 2.3-3.[address] [facility] HospitalAlbumin/Globulin Cbhom0343-08-89 08:51:00 * Test Item Value Reference Range Interpretation Comments Albumin/Globulin Ratio (test code = 1759-0) 0.9 0.8-2.[address] HospitalAlkaline Qxargruezrk1585-80-48 08:51:00* Test Item Value Reference Range Interpretation Comments Alkaline Phosphatase (test code = 6768-6) 102 40-[address] HospitalWhite Blood Dxcda7018-14-70 08:46:00* Test Item Value Reference Range Interpretation Comments White Blood Count (test code = 6690-2) 7.27 4.8-10.[address] HospitalRed Blood Qowuh9906-09-73 08:46:00* Test Item Value Reference Range Interpretation Comments Red Blood Count (test code = 789-8) 5.09 3.6-5.[address] HospitalHemoglobin2019-11-27 08:46:00* Test Item Value Reference Range Interpretation Comments Hemoglobin (test code = 42648-3) 9.2 12.0-16.[address] HospitalHematocrit2019-11-27 08:46:00* Test Item Value Reference Range Interpretation Comments Hematocrit (test code = 4544-3) 33.3 34.2-44.[address] HospitalMean Corpuscular Zgigdf8190-49-31 08:46:00* Test Item Value Reference Range Interpretation Comments Mean Corpuscular Volume (test code = 787-2) 65.4 81-[address] HospitalMean Corpuscular Dcbixdlvbn3267-57-55 08:46:00* Test Item Value Reference Range Interpretation Comments Mean Corpuscular Hemoglobin (test code = 785-6) 18.1 28-[address] HospitalMean Corpuscular Hemoglobin Concent 2019-06-30 08:46:00* Test Item Value Reference Range Interpretation Comments Mean Corpuscular Hemoglobin Concent (test code = 786-4) 27.6 31-[address] HospitalRed Cell Distribution Cvvlc4662-48-58 08:46:00* Test Item Value Reference Range Interpretation Comments Red Cell Distribution Width (test code = 51504-3) 25.5 11.7 -14.[address] [facility] HospitalPlatelet Tyojt8566-45-61 08:46:00* Test Item Value Reference Range Interpretation Comments Platelet Count (test code = 777-3) 334 140-[address] [facility] [facility] HospitalNeutrophils (%) (Auto)2019-06-30 08:46:00 * Test Item Value Reference Range Interpretation Comments Neutrophils (%) (Auto) (test code = 93109-9) 56.0 38.7-80.[address] HospitalLymphocytes (%) (Auto)2019-06-30 08:46:00 * Test Item Value Reference Range Interpretation Comments Lymphocytes (%) (Auto) (test code = 736-9) 27.6 18.0-39.[address] [facility] HospitalMonocytes (%) (Auto)2019-06-30 08:46:00* Test Item Value Reference Range Interpretation Comments Monocytes (%) (Auto) (test code = 5905-5) 12.9 4.4-11.[address] HospitalEosinophils (%) (Auto)2019-06-30 08:46:00 * Test Item Value Reference Range Interpretation Comments Eosinophils (%) (Auto) (test code = 713-8) 2.1 0.0-6.[address] [facility] HospitalBasophils (%) (Auto)2019-06-30 08:46:00* Test Item Value Reference Range Interpretation Comments Basophils (%) (Auto) (test code = 706-2) 0.8 0.0-1.[address] [facility] HospitalIM GRANULOCYTES %2019-06-30 08:46:00* Test Item Value Reference Range Interpretation Comments IM GRANULOCYTES % (test code = IM GRANULOCYTES %) 0.6 0.0- 1.[address] [facility] [facility] HospitalNeutrophils # (Auto)2019-06-30 08:46:00* Test Item Value Reference Range Interpretation Comments Neutrophils # (Auto) (test code = 751-8) 4.1 2.1-6.[address] HospitalLymphocytes # (Auto)2019-06-30 08:46:00* Test Item Value Reference Range Interpretation Comments Lymphocytes # (Auto) (test code = 46699-2) 2.0 1.0-3.[address] [facility] HospitalMonocytes # (Auto)2019-06-30 08:46:00* Test Item Value Reference Range Interpretation Comments Monocytes # (Auto) (test code = 742-7) 0.9 0.2-0.[address] HospitalEosinophils # (Auto)2019-06-30 08:46:00* Test Item Value Reference Range Interpretation Comments Eosinophils # (Auto) (test code = 711-2) 0.2 0.0-0.[address] [facility] HospitalBasophils # (Auto)2019-06-30 08:46:00* Test Item Value Reference Range Interpretation Comments Basophils # (Auto) (test code = 704-7) 0.1 0.0-0.[address] [facility] HospitalAbsolute Immature Granulocyte (auto 2019-06-30 08:46:00* Test Item Value Reference Range Interpretation Comments Absolute Immature Granulocyte (auto (marni t code = Absolute Immature Granulocyte (auto) 0.04 0-0.[address] HospitalCreatine Kinase [id number] 19:42:00* Test Item Value Reference Range Interpretation Comments Creatine Kinase MB (test code = 06446-2) 1.80 0-5.[address] [facility] HospitalTroponin [id number] 19:42:00* Test Item Value Reference Range Interpretation Comments Troponin I (test code = LBZ5087) 0.007 0-0.[address] [facility] HospitalCreatine Zxpdgs8455-86-16 19:31:00* Test Item Value Reference Range Interpretation Comments Creatine Kinase (test code = 2157-6) 68 29-[address] [facility] HospitalPlatelet Xufyckkx0547-16-49 15:15:00* Test Item Value Reference Range Interpretation Comments Platelet Estimate (test code = 36941-2) SLIGHTLY INCREASED [facility] HospitalPlatelet Morphology Kucwxqy6947-48-19 15:15:00* Test Item Value Reference Range Interpretation Comments Platelet Morphology Comment (test code = 08234-9) NORMAL [facility] HospitalHypochromasia2019-11-26 15:15:00* Test Item Value Reference Range Interpretation Comments Hypochromasia (test code = 728-6) SLIGHT [facility] HospitalMacrocytosis2019-11-26 15:15:00* Test Item Value Reference Range Interpretation Comments Macrocytosis (test code = 738-5) SLIGHT [facility] HospitalOvalocytes2019-11-26 15:15:00* Test Item Value Reference Range Interpretation Comments Ovalocytes (test code = 774-0) FEW [facility] HospitalRed Cell Morphology Llfidfb0374-68-71 15:15:00* Test Item Value Reference Range Interpretation Comments Red Cell Morphology Comment (test code = 6742-1) NORMAL [facility] HospitalMacrocytosis2019-11-26 15:15:00* Test Item Value Reference Range Interpretation Comments Macrocytosis (test code = 738-5) SLIGHT [facility] HospitalOvalocytes2019-11-26 15:15:00* Test Item Value Reference Range Interpretation Comments Ovalocytes (test code = 774-0) FEW [facility] HospitalFOOT RIGHT UPWBFEJL5959-05-60 14:54:00 [facility] [address] [place] [address] Patient Name: DOUG GOMEZ MR #: [id number] : 1945 Age/Sex: 73/F Req #: [id number] Adm Physician: Ordered by: LOUANN ROSE APPLIANCE WORKER Report #: [id number] Location: ER Room/Bed: Procedure: [id number] DX/ FOOT RIGHT COMPLETE Exam Date: 06/29/19 Exam Time: 1 230 REPORT STATUS: Signed EXAMIN ATION: FOOT RIGHT COMPLETE INDICATION: Trauma COMPARISON: None FINDINGS: No acute fracture or dislocation. Alignment is anatomic. Minimal scattered degenerative changes. Soft tissues appear unremarkable. IMPRESSION: No acute osseous injury. Signed by: Patrick Mccarthy MD on 06/29 3:40 PM Dictated By: PATRICK MCCARTHY MD 154 Transcribed By: ZOIE on 06/29/19 1540 COPY T O: LOUANN ROSE APPLIANCE WORKER Stool Occult Gsdrh5719-96-58 14:30:00* Test Item Value Reference Range Interpretation Comments Stool Occult Blood (test code = 2335-8) [facility]IVE [facility] Osewh0195-94-55 14:30:00* Test Item Value Reference Range Interpretation Comments Stool Occult Blood (test code = 2335-8) NEGATIVE NEGATIVE [facility] [id number] 13:44:00* Test Item Value Reference Range Interpretation Comments Urine WBC (test code = 5821-4) 0-5 0-[address] [facility] [id number] 13:44:00* Test Item Value Reference Range Interpretation Comments Urine RBC (test code = 90640-8) NONE 0-[address] [facility] [facility] [facility] Hospital[facility] Hzbqzdpz7729-06-53 13:44:00* Test Item Value Reference Range Interpretation Comments Urine Bacteria (test code = 13839-2) RARE NONE [facility] Epithelial Koxky6232-96-63 13:44:00 * Test Item Value Reference Range Interpretation Comments Urine Epithelial Cells (test code = 70175-4) FEW NONE [facility] [id number] 13:44:00* Test Item Value Reference Range Interpretation Comments Urine WBC (test code = 5821-4) 0-5 0-[address] [facility] Hospital[facility] [id number] 13:44:00* Test Item Value Reference Range Interpretation Comments Urine RBC (test code = 41569-1) NONE 0-[address] [facility] [facility] Wrkhbqte2081-76-19 13:44:00* Test Item Value Reference Range Interpretation Comments Urine Bacteria (test code = 99727-0) RARE NONE [facility] Epithelial Mgayx3513-49-91 13:44:00 * Test Item Value Reference Range Interpretation Comments Urine Epithelial Cells (test code = 88881-7) FEW NONE [facility] Voyeo2927-15-78 13:31:00* Test Item Value Reference Range Interpretation Comments Urine Color (test code = 5778-6) YELLOW YELLOW [facility] Rxljpus9952-86-33 13:31:00* Test Item Value Reference Range Interpretation Comments Urine Clarity (test code = 59822-6) CLEAR CLEAR [facility] Specific Jvmxfiu0026-59-37 13:31:00 * Test Item Value Reference Range Interpretation Comments Urine Specific [place] (test code = 5811-5) 1.010 1.010-1.[address] [facility] [facility] [id number] 13:31:00* Test Item Value Reference Range Interpretation Comments Urine pH (test code = 49225-5) 7 5-[address] [facility] Leukocyte Kzapgfap4350-26-05 13:31:00* Test Item Value Reference Range Interpretation Comments Urine Leukocyte Esterase (test code = 15814-0) SMALL NEGATIV E [facility] Wtvnfak0598-63-63 13:31:00* Test Item Value Reference Range Interpretation Comments Urine Nitrite (test code = 30590-7) NEGATIVE NEGATIVE [facility] Iszvxyj7463-41-81 13:31:00* Test Item Value Reference Range Interpretation Comments Urine Protein (test code = 10477-1) NEGATIVE NEGATIVE [facility] Glucose (UA)2019-06-29 13:31:00* Test Item Value Reference Range Interpretation Comments Urine Glucose (UA) (test code = 39704-8) NEGATIVE NEGATIVE [facility] Tylckdu5267-13-77 13:31:00* Test Item Value Reference Range Interpretation Comments Urine Ketones (test code = 27622-8) NEGATIVE NEGATIVE [facility] Spknkrbjiqlw7385-40-86 13:31:00* Test Item Value Reference Range Interpretation Comments Urine Urobilinogen (test code = 45765-5) 0.2 0.2-[address] [facility] Hrgvalxou2797-57-65 13:31:00* Test Item Value Reference Range Interpretation Comments Urine Bilirubin (test code = 1977-8) NEGATIVE NEGATIVE [facility] Dcugx6521-58-08 13:31:00* Test Item Value Reference Range Interpretation Comments Urine Blood (test code = 23112-3) NEGATIVE NEGATIVE [facility] Nqlmf0656-10-96 13:31:00* Test Item Value Reference Range Interpretation Comments Urine Color (test code = 5778-6) YELLOW YELLOW [facility] Cltxqov2860-23-70 13:31:00* Test Item Value Reference Range Interpretation Comments Urine Clarity (test code = 25152-8) CLEAR CLEAR [facility] Specific Jrmckgn7709-42-53 13:31:00 * Test Item Value Reference Range Interpretation Comments Urine Specific [place] (test code = 5811-5) 1.010 1.010-1.[address] [facility] [id number] 13:31:00* Test Item Value Reference Range Interpretation Comments Urine pH (test code = 46865-8) 7 5-[address] Leukocyte Feompvdy8812-34-93 13:31:00* Test Item Value Reference Range Interpretation Comments Urine Leukocyte Esterase (test code = 17020-5) SMALL NEGATIV E [facility] Iertweb4642-27-31 13:31:00* Test Item Value Reference Range Interpretation Comments Urine Nitrite (test code = 44100-3) NEGATIVE NEGATIVE [facility] Eseiwnq5195-96-34 13:31:00* Test Item Value Reference Range Interpretation Comments Urine Protein (test code = 70326-9) NEGATIVE NEGATIVE [facility] Glucose (UA)2019-06-29 13:31:00* Test Item Value Reference Range Interpretation Comments Urine Glucose (UA) (test code = 04411-9) NEGATIVE NEGATIVE [facility] Pskiqcv6261-51-99 13:31:00* Test Item Value Reference Range Interpretation Comments Urine Ketones (test code = 02211-7) NEGATIVE NEGATIVE [facility] Iubtmthtrvhu6694-07-74 13:31:00* Test Item Value Reference Range Interpretation Comments Urine Urobilinogen (test code = 55355-3) 0.2 0.2-[address] Ggtkkuznv8709-84-48 13:31:00* Test Item Value Reference Range Interpretation Comments Urine Bilirubin (test code = 1977-8) NEGATIVE NEGATIVE [facility] Ckbxm1422-71-77 13:31:00* Test Item Value Reference Range Interpretation Comments Urine Blood (test code = 17967-0) NEGATIVE NEGATIVE [facility] HospitalCT CERVICAL SPINE [id number] 13:17:00 [place] [address] Patient Name: DOUG GOMEZ MR #: [id number] : 1945 Age/Sex: 73/F Req #: [id number] Adm Physician: Ordered by: LOUANN ROSE APPLIANCE WORKER Report #: [id number] Location: ER Room/Bed: Procedure: [id number] CT/ CT CERVICAL SPINE WO Exam Date: 06/29/19 Exam Time: 1230 REPORT STATUS: Signed CT CE RVICAL SPINE WO HISTORY: Fall COMPARISON: None. TECHNIQUE: CT of the cervical spine without contrast. Sagittal and coronal reformations were created. One or more of the following dose reduction techniques were used: Au tomated exposure control, adjustment of the mA and/or kV according to patient size, and/or utilization of iterative reconstruction technique. FINDINGS: Cervical lordosis is preserved. There is no significant scoliosis. No definite acute fracture or compression deformity is seen. The craniocer vical junction is intact. No gross spinal canal masses are seen. The parav ertebral and paraspinal soft tissues are unremarkable. Mild multilevel spo ndylotic changes are present. Multilevel bilateral facet arthrosis is associat ed with grade 1 anterolisthesis of C5 on C6. Mild atlantoaxial arthrosis is pr esent as well. Mild to moderate bilateral carotid bulb calcified plaque is present. IMPRESSION: No acute osseous abnormalities. Mild multilevel sp ondylosis. Signed by: Dr. Drew Pryor M.D. on 06/29/2019 1:22 PM Dictated By: DREW PRYOR MD 1322 Transcribed By: ZOIE on 06/29/19 1322 COPY TO: LOUANN SINGLETON NP CT BRAIN [id number] 13:15:00 [place] [address] Patient Name: DOUG GOMEZ MR #: [id number] : 1945 Age/Sex: 73/F Req #: [id number] Adm Physician: Ordered by: LOUANN ROSE NP Report #: [id number] Location: ER Room/Bed: Procedure: [id number] CT/ CT BRAIN WO Exam Date: 06/29/19 Exam Time: 1230 REPORT STATUS: Signed CT BRAIN WO HISTORY: Fall COMPARISON: None. Technique: Noncontrast axial sc ans were obtained from skull base to the vertex. Coronal and sagittal reconst ructions obtained from the axial data. One or more of the following dose redu ction techniques were used: Automated exposure control, adjustment of the mA a nd/or kV according to patient size, and/or utilization of iterative reconstruc tion technique. DISCUSSION: Scalp/Skull: Unremarkable. Brain sulci: Mildly prominent. Ventricles: Compensatory dilatation. Extra-axial spaces: N o masses or fluid collections. Carotid siphon calcifications are present. Parenchyma: Mild bilateral deep white matter hypodensity is likely chronic m icrovascular ischemic change. Otherwise, no masses, hemorrhage, or large va scular territory acute infarct. Dural sinuses: No abnormal densities. Se llar/Suprasellar region: Intact. Skull base: Intact. Incidental findings: Bi lateral ocular lens replacement. IMPRESSION: 1. No acute intracranial ab normalities. 2. Mild supratentorial chronic microvascular ischemic change. Mi ld generalized cerebral volume loss. Signed by: Jacobo Eller on 06/29/2019 1:17 PM Dictated By: DREW PRYOR MD 16 Transcribed By: ZOIE on 1317 COPY TO: LOUANN ROSE NP CHEST SINGLE (PORTABLE) 2019-06-29 13:04:00 [place] [address] Patient Name: DOUG GOMEZ MR #: [id number] : 1945 Age/Sex: 73/F Req #: [id number] Adm Physician: Ordered by: LOUANN ROSE NP Report #: [id number] Location: ER Room/Bed: Procedure: [id number] DX/ CHEST SINGLE (PORTABLE) Exam Date: Exam Time: REPORT STATUS: Signed EXAMINATION: CHEST SINGLE (PORTABLE) INDICATION: Trauma COMPARISON: None FINDINGS: LINES/TUBES:None LUNGS:The lungs are well-inflated. No f ocal consolidation or pulmonary edema. PLEURA:No pleural effusion or pneumo thorax. MEDIASTINUM:The cardiomediastinal silhouette appears normal in size and shape. Atherosclerotic calcifications of the thoracic aorta. BONES/S OFT TISSUES:No acute osseous injury. ABDOMEN:No free air under the diaphrag m. IMPRESSION: No radiographic evidence of acute traumatic injury to the thorax. Signed by: Patrick Mccarthy MD on 06/29/2019 1:05 PM Dictated By: PATRICK MCCARTHY MD 1308 Tr anscribed By: ZOIE on 06/29/19 130 COPY TO: LOUANN ROSE APPLIANCE WORKER Sodium Ityod7833-39-22 12:59:00* Test Item Value Reference Range Interpretation Comments Sodium Level (test code = 2951-2) 135 136-[address] HospitalPotassium Qmayt0140-41-51 12:59:00* Test Item Value Reference Range Interpretation Comments Potassium Level (test code = 2823-3) 3.6 3.5-5.[address] [facility] HospitalChloride Vlrou9589-22-44 12:59:00* Test Item Value Reference Range Interpretation Comments Chloride Level (test code = 2075-0) 101 98-[address] [facility] HospitalCarbon Dioxide Hjjfp2372-68-84 12:59:00* Test Item Value Reference Range Interpretation Comments Carbon Dioxide Level (test code = 8-9) 24 22-[address] [facility] HospitalAnion Qtn3003-25-78 12:59:00* Test Item Value Reference Range Interpretation Comments Anion Gap (test code = 63437-1) 13.6 8-[address] [facility] HospitalBlood Urea Gibnmxeo5759-46-79 12:59:00* Test Item Value Reference Range Interpretation Comments Blood Urea Nitrogen (test code = 3094-0) 15 7-[address] [facility] HospitalCreatinine2019-11-26 12:59:00* Test Item Value Reference Range Interpretation Comments Creatinine (test code = 2160-0) 0.78 0.57-1.[address] [facility] HospitalBUN/Creatinine Uqgtq5379-74-75 12:59:00* Test Item Value Reference Range Interpretation Comments BUN/Creatinine Ratio (test code = 3097-3) 19 6-[address] HospitalEstimat Glomerular Filtration Rate 2019-06-29 12:59:00* Test Item Value Reference Range Interpretation Comments Estimat Glomerular Filtration Rate (test code = 600664421) > 60 >60 Ranges were taken from the National Kidney Disease Education Program and the [facility] Kidney Foundation literature.Reference ranges:60 or greater: Trkbvn28-28 ( for 3 consecutive months): Chronic kidney disease 15 or less: Kidney failureCHI [facility] Health Hospital MansfieldGlucose Ibvlw6626-85-69 12:59:00* Test Item Value Reference Range Interpretation Comments Glucose Level (test code = OWG6661) 120 74-[address] [facility] HospitalCalcium Licvf3632-41-36 12:59:00* Test Item Value Reference Range Interpretation Comments Calcium Level (test code = 21050-7) 9.4 8.4-10.[address] [facility] HospitalMagnesium Wjkmw7553-49-58 12:59:00* Test Item Value Reference Range Interpretation Comments Magnesium Level (test code = 58156-9) 1.9 1.3-2.[address] HospitalTotal Lzaddaong0812-64-59 12:59:00* Test Item Value Reference Range Interpretation Comments Total Bilirubin (test code = 1975-2) 0.5 0.2-1.[address] HospitalAspartate Amino Transf (AST/SGOT) 2019-06-29 12:59:00* Test Item Value Reference Range Interpretation Comments Aspartate Amino Transf (AST/SGOT) (test code = Aspartate Amino Transf (AST/SGOT)) 15 5-[address] [facility] HospitalAlanine Aminotransferase (ALT/SGPT) 2019-06-29 12:59:00* Test Item Value Reference Range Interpretation Comments Alanine Aminotransferase (ALT/SGPT) (test code = 1742-6) 9 0-[address] [facility] HospitalTotal Lqvebjx8786-59-66 12:59:00* Test Item Value Reference Range Interpretation Comments Total Protein (test code = 2885-2) 7.7 6.5-8.[address] [facility] HospitalAlbumin2019-11-26 12:59:00* Test Item Value Reference Range Interpretation Comments Albumin (test code = 1751-7) 3.6 3.5-5.[address] HospitalGlobulin2019-11-26 12:59:00* Test Item Value Reference Range Interpretation Comments Globulin (test code = 25845-1) 4.1 2.3-3.[address] [facility] HospitalAlbumin/Globulin Jrwxz5889-89-65 12:59:00 * Test Item Value Reference Range Interpretation Comments Albumin/Globulin Ratio (test code = 1759-0) 0.9 0.8-2.[address] HospitalAlkaline Oirzbowqgvw7352-68-78 12:59:00* Test Item Value Reference Range Interpretation Comments Alkaline Phosphatase (test code = 6768-6) 96 40-[address] HospitalB-Type Natriuretic Vukybau6142-06-68 12:59:00* Test Item Value Reference Range Interpretation Comments B-Type Natriuretic Peptide (test code = 96848-3) 177.4 0-[address] [facility] HospitalCreatine Zpeffk7164-24-93 12:59:00* Test Item Value Reference Range Interpretation Comments Creatine Kinase (test code = 2157-6) 80 29-[address] HospitalCreatine Kinase [id number] 12:59:00* Test Item Value Reference Range Interpretation Comments Creatine Kinase MB (test code = 92865-0) 1.90 0-5.[address] HospitalTroponin [id number] 12:59:00* Test Item Value Reference Range Interpretation Comments Troponin I (test code = XMQ5641) 0.012 0-0.[address] HospitalMagnesium Zgonl5694-81-49 12:59:00* Test Item Value Reference Range Interpretation Comments Magnesium Level (test code = 44845-7) 1.9 1.3-2.[address] HospitalB-Type Natriuretic Wmxcboj2708-08-30 12:59:00* Test Item Value Reference Range Interpretation Comments B-Type Natriuretic Peptide (test code = 88801-1) 177.4 0-[address] [facility] HospitalProthrombin Fshc4299-18-75 12:40:00* Test Item Value Reference Range Interpretation Comments Prothrombin Time (test code = 5902-2) 14.0 11.9-14.[address] [facility] HospitalProthromb Time International Ratio 2019-06-29 12:40:00* Test Item Value Reference Range Interpretation Comments Prothromb Time International Ratio (test code = 6301-6) 1.03 Oral Anticoagulant Therapy INR Values:1. Low Intensity Therapy 1.5 - 2.02 . Moderate Intensity Therapy 2.0 - 3.03. High Intensity Therapy(1) 2.5 - 3. 54. High Intensity Therapy(2) 3.0 - 4.05. Panic Value INR > 5.[address] [facility] HospitalActivated Partial Thromboplast Time 2019-06-29 12:40:00* Test Item Value Reference Range Interpretation Comments Activated Partial Thromboplast Time (test code = 76287-4) 27.7 23.8-35.[address] HospitalProthrombin Nynw5461-98-83 12:40:00* Test Item Value Reference Range Interpretation Comments Prothrombin Time (test code = 5902-2) 14.0 11.9-14.[address] [facility] HospitalProthromb Time International Ratio 2019-06-29 12:40:00* Test Item Value Reference Range Interpretation Comments Prothromb Time International Ratio (test code = 6301-6) 1.03 Oral Anticoagulant Therapy INR Values:1. Low Intensity Therapy 1.5 - 2.02 . Moderate Intensity Therapy 2.0 - 3.03. High Intensity Therapy(1) 2.5 - 3. 54. High Intensity Therapy(2) 3.0 - 4.05. Panic Value INR > 5.[address] [facility] HospitalActivated Partial Thromboplast Time 2019-06-29 12:40:00* Test Item Value Reference Range Interpretation Comments Activated Partial Thromboplast Time (test code = 78392-7) 27.7 23.8-35.[address] [facility] HospitalWhite Blood Oehue9788-78-43 12:26:00* Test Item Value Reference Range Interpretation Comments White Blood Count (test code = 6690-2) 7.97 4.8-10.[address] HospitalRed Blood Oizoo8521-61-22 12:26:00* Test Item Value Reference Range Interpretation Comments Red Blood Count (test code = 789-8) 3.97 3.6-5.[address] [facility] HospitalHemoglobin2019-11-26 12:26:00* Test Item Value Reference Range Interpretation Comments Hemoglobin (test code = 96043-1) 6.1 12.0-16.0 LL Results repeated and called to DR. RAMESH at 1225 on 06/29/19 by Marco Coleman. Faith d back and verified.[facility] HospitalHematocrit2019-11-26 12:26:00* Test Item Value Reference Range Interpretation Comments Hematocrit (test code = 4544-3) 23.8 34.2-44.[address] HospitalMean Corpuscular Oyxdzj3703-05-09 12:26:00* Test Item Value Reference Range Interpretation Comments Mean Corpuscular Volume (test code = 787-2) 59.9 81-[address] [facility] HospitalMean Corpuscular Husmresgld9313-25-39 12:26:00* Test Item Value Reference Range Interpretation Comments Mean Corpuscular Hemoglobin (test code = 785-6) 15.4 28-[address] [facility] HospitalMean Corpuscular Hemoglobin Concent 2019-06-29 12:26:00* Test Item Value Reference Range Interpretation Comments Mean Corpuscular Hemoglobin Concent (test code = 786-4) 25.6 31-[address] [facility] HospitalRed Cell Distribution Qtnhd3389-01-11 12:26:00* Test Item Value Reference Range Interpretation Comments Red Cell Distribution Width (test code = 92405-6) 21.1 11.7 -14.[address] [facility] HospitalPlatelet Inoub4283-07-05 12:26:00* Test Item Value Reference Range Interpretation Comments Platelet Count (test code = 777-3) 419 140-[address] HospitalNeutrophils (%) (Auto)2019-06-29 12:26:00 * Test Item Value Reference Range Interpretation Comments Neutrophils (%) (Auto) (test code = 09251-4) 63.7 38.7-80.[address] HospitalLymphocytes (%) (Auto)2019-06-29 12:26:00 * Test Item Value Reference Range Interpretation Comments Lymphocytes (%) (Auto) (test code = 736-9) 23.8 18.0-39.[address] [facility] HospitalMonocytes (%) (Auto)2019-06-29 12:26:00* Test Item Value Reference Range Interpretation Comments Monocytes (%) (Auto) (test code = 5905-5) 10.4 4.4-11.[address] [facility] HospitalEosinophils (%) (Auto)2019-06-29 12:26:00 * Test Item Value Reference Range Interpretation Comments Eosinophils (%) (Auto) (test code = 713-8) 0.8 0.0-6.[address] [facility] HospitalBasophils (%) (Auto)2019-06-29 12:26:00* Test Item Value Reference Range Interpretation Comments Basophils (%) (Auto) (test code = 706-2) 0.8 0.0-1.[address] HospitalIM GRANULOCYTES %2019-06-29 12:26:00* Test Item Value Reference Range Interpretation Comments IM GRANULOCYTES % (test code = IM GRANULOCYTES %) 0.5 0.0- 1.[address] [facility] [facility] HospitalNeutrophils # (Auto)2019-06-29 12:26:00* Test Item Value Reference Range Interpretation Comments Neutrophils # (Auto) (test code = 751-8) 5.1 2.1-6.[address] HospitalLymphocytes # (Auto)2019-06-29 12:26:00* Test Item Value Reference Range Interpretation Comments Lymphocytes # (Auto) (test code = 71580-0) 1.9 1.0-3.[address] [facility] HospitalMonocytes # (Auto)2019-06-29 12:26:00* Test Item Value Reference Range Interpretation Comments Monocytes # (Auto) (test code = 742-7) 0.8 0.2-0.[address] [facility] HospitalEosinophils # (Auto)2019-06-29 12:26:00* Test Item Value Reference Range Interpretation Comments Eosinophils # (Auto) (test code = 711-2) 0.1 0.0-0.[address] [facility] HospitalBasophils # (Auto)2019-06-29 12:26:00* Test Item Value Reference Range Interpretation Comments Basophils # (Auto) (test code = 704-7) 0.1 0.0-0.[address] [facility] HospitalAbsolute Immature Granulocyte (auto 2019-06-29 12:26:00* Test Item Value Reference Range Interpretation Comments Absolute Immature Granulocyte (auto (marni t code = Absolute Immature Granulocyte (auto) 0.[address] [facility]
--- OUTSIDE RECORDS SUMMARY | 2019-12-31 10:52 | XMS REPORT | Clinical Summary ---
Author Author [facility] Organization [facility] Address Unknown Phone Unavailable Care Team Providers Care Chief Librarian Work With Blind Name Role Phone Wilbur Bruno MD PCP Allergies Comments Active Allergy Reactions Severity Noted Date Organ failure Sulfa (Sulfonamide Rash, Other High 09/27/2019 Antibiotics) (See Comments) Medications End Date Status Medication Sig Dispensed Refills Start Date Active prasugreL (EFFIENT) 10 mg 0 tablet 0 Active atorvastatin (LIPITOR) 40 0 MG tablet 0 Active metoprolol tartrate 0 (LOPRESSOR) 50 mg tablet 0 Active omeprazole/sodium Take by 0 bicarbonate (ZEGERID mouth. ORAL) Active aspirin (ECOTRIN) 81 MG Take 81 mg by 0 enteric coated tablet mouth daily. Active Problems Problem Noted Date Celiac artery stenosis 09/27/2019 Last Assessment & Plan: Patient with asymptomatic celiac artery stenosis. Medical management sounds good. She will return to our clinic as needed. Encounters Care Team Description Date Type Specialty Zev Amado MD 10/04/2019 Hospital Radiology Encounter Zev Amado MD Celiac artery stenosis (HCC) (Primary Dx ) 09/27/2019 Office Visit Cardiovascular Zev Amado MD 09/14/2019 Telephone Cardiovascular after 12/30/2018 Family History Medical History Relation Name Comments Cancer Brother Alzheimer's disease Father Cancer Mother Cancer Sister Relation Name Status Comments Brother Father Mother Sister Social History Date Tobacco Use Types Packs/Day Years Used Never Smoker Smokeless Tobacco: Never Used Drinks/Week oz/Week Comments Alcohol Use Not Currently Alcohol Habits Answer Date Recorded How often do you have a drink containing alcohol? Never 09/27/2019 How many drinks containing alcohol do you have on No t asked a typical day when you are drinking? How often do you have six or more drinks on one Not asked occasion? Sex Assigned at Date Recorded Not on file Industry Job Start Date Occupation Not on file Not on file Not on file Travel End Travel History Travel Start No recent travel history available. Last Filed Vital Signs Reading Time Taken Comments Vital Sign 163/87 09/27/2019 2:33 PM [employer] [facility] Blood Pressure 89 09/27/2019 2:33 PM [employer] [facility] Pulse 36.8 C (98.3 F) 09/27/2019 2:33 PM [employer] Temperature - - Respiratory Rate - - Oxygen Saturation - - Inhaled Oxygen Concentration 78.2 kg (172 lb 6.4 oz) 09/27/2019 2:33 PM [employer] [facility] Weight 165.1 cm (5' 5") 09/27/2019 2:33 PM [employer] [facility] Height 28.69 09/27/2019 2:33 PM [employer] [facility] Body Mass Index Plan of Treatment Health Maintenance Due Date Last Done Comments BREAST CANCER SCREENING 11/12/1997 COLONOSCOPY SCREENING 11/12/1997 SHINGLES VACCINES (#1) 11/12/1997 65+ PNEUMOCOCCAL VACCINE 11/12/2012 05/17/2015 (2 of 2 - PPSV23) INFLUENZA VACCINE 03/04/2020 05/17/2015 Procedures Comments Procedure Name Priority Date/Time Associated Diag nosis CT ABD/PELVIC EXTERNAL Routine 08/09/2019 STUDY 8:38 AM [facility] after 12/30/2018 Results * CT Abd/Pelvic External Study (08/09/2019 8:38 AM DIRECT[employer] [facility]) Specimen Narrative Performed At This exam was not acquired at a [facility] facility an d has not been [facility] interpreted by a [facility] Provider. The exam was imported into our imaging system. Performing Organization Address City/State/Zipcode Ph one Number [facility] [address] [place] [address] after 12/30/2018 Insurance Type Payer Benefit Subscriber ID Effective Phone Address Plan / Dates Group Medicare MEDICARE MEDICARE xxxxxxxxxxx [id number] [place], PART A AND [place] 3457 1 Advance Directives For more information, please contact: [phone] Patient Substation Technician Explanation Type Date Recorded Advance Directives, Living Will and Medical Power of Air Cargo Specialist Supervisor
[2019-12-31] MEDS ORDERED: SODIUM CHLORIDE 0.9% 1000ML 1,000 ML IV STA ×2 (11:05→12:03)
[2019-12-31] MEDS ORDERED: PANTOPRAZOLE 40 MG 10ML VIAL IV STA (11:05)
[2019-12-31] MEDS ORDERED: SKELAXIN800 MG PO (11:17)
[2019-12-31] MEDS ORDERED: ZEGERID 20 MG1 EACH (11:17)
[2019-12-31 11:27] LABS: BASOPHILS % 0.3 % (0.0-1.0); HEMOGLOBIN 14.1 g/dL (12.0-16.0); LYMPHOCYTES # (AUTO) 1.4 (1.0-3.2); LYMPHOCYTES % 8.8 % (18.0-39.1); MEAN CORPUSCULAR HEMOGLOBIN 29.1 pg (28-32); MEAN CORPUSCULAR HGB CONC 32.8 g/dL (31-35); MEAN CORPUSCULAR VOLUME 88.8 fL (81-99); MONOCYTES # (AUTO) 0.9 (0.2-0.8); MONOCYTES % 5.8 % (4.4-11.3); NEUTROPHILS # (AUTO) 12.9 (2.1-6.9); NEUTROPHILS % 83.3 % (38.7-80.0); PLATELET COUNT 196 x10e3/uL (140-360); RED BLOOD COUNT 4.84 x10e6/uL (3.6-5.1); RED CELL DISTRIBUTION WIDTH 16.1 % (11.7-14.4)
[2019-12-31 11:42] LABS: INR 1.01; PROTHROMBIN TIME 13.9 seconds (11.9-14.5)
[2019-12-31 11:43] LABS: PARTIAL THROMBOPLASTIN TIME 31.9 seconds (23.8-35.5)
[2019-12-31 11:46] LABS: CLARITY,URINE SL CLOUDY (CLEAR); COLOR,URINE YELLOW (YELLOW)
[2019-12-31 11:47] LABS: BILIRUBIN,URINE NEGATIVE (NEGATIVE); KETONES,URINE TRACE (NEGATIVE); LEUKOCYTE ESTERASE ,URINE NEGATIVE (NEGATIVE); NITRITE,URINE NEGATIVE (NEGATIVE); PROTEIN,URINE DIPSTICK 2+ (NEGATIVE); URINE UROBILINOGEN 0.2 mg/dL (0.2 - 1)
[2019-12-31 11:52] LABS: ALBUMIN 3.4 g/dL (3.5-5.0); ALBUMIN/GLOBULIN RATIO 0.8 (0.8-2.0); ANION GAP 17.4 mmol/L (8-16); CALCIUM 9.4 mg/dL (8.4-10.2); CREATININE, SERUM 1.05 mg/dL (0.57-1.11); MAGNESIUM 1.9 MG/DL (1.3-2.1); POTASSIUM 3.4 mmol/L (3.5-5.1)
[2019-12-31 11:57] LABS: BACTERIA,URINE RARE /HPF; EPITHELIAL CELLS,URINE FEW /LPF
[2019-12-31 11:59] LABS: CREATINE KINASE MB 3.3 ng/mL (0-5.0)
[2019-12-31] MEDS ORDERED: PIPER-TAZ 3.375 GM 50 ML IV SCH (12:15)
[2019-12-31 12:19] LABS: B-TYPE NATRIURETIC PEPTIDE2 155.3 pg/mL (0-100)
--- NOTE | 2019-12-31 12:19 | Diagnostic Imaging Report ---
Examination: CT head without contrast Clinical Indication: Altered mental status. Technique: Transaxial noncontrast images from the skull base through the vertex were obtained. Sagittal and coronal reformatted images were done. Dose modulation, iterative reconstruction, and/or weight based adjustment of the mA/kV was utilized to reduce the radiation dose to as low as reasonably achievable. Comparison: Head CT dated 06/29/2019. Findings: Scalp: No abnormalities. Bones: Intact. No fractures. No blastic or lytic lesions. Brain sulci: Generalized volume loss for patient's age. Ventricles: No hydrocephalus. Extra-axial space: No abnormalities. Parenchyma: Again demonstrated are confluent areas of low-attenuation within subcortical and periventricular white matter, nonspecific, but could represent microvascular ischemic disease. No masses, hemorrhage, or acute or chronic cortical based vascular insults. Suprasellar region: No abnormalities. Craniocervical junction: The foramen magnum is patent. No Chiari one malformation. Incidental findings: Atherosclerotic calcification of the cavernous and supraclinoid internal carotid and V4 segments of the bilateral vertebral arteries. Impression: 1. No acute intracranial finding when compared to prior head CT dated 06/29/2019. 2. Unchanged chronic microvascular ischemic change and volume loss. Signed by: Dr. Marah Avila M.D. on 12/31/2019 12:16 PM
--- NOTE | 2019-12-31 12:41 | Diagnostic Imaging Report ---
EXAMINATION: CHEST SINGLE (NOT PORTABLE) INDICATION: Fever COMPARISON: Chest radiograph of 06/29/2019 FINDINGS: LINES/TUBES:None LUNGS:The lungs are well-inflated. Bibasilar patchy opacities. PLEURA:No pleural effusion or pneumothorax. MEDIASTINUM:The cardiomediastinal silhouette appears unchanged in size and shape. Atherosclerotic calcifications of the thoracic aorta. BONES/SOFT TISSUES:No acute osseous injury. ABDOMEN:No free air under the diaphragm. IMPRESSION: Bibasilar patchy opacities may represent atelectasis however superimposed aspiration or pneumonia could have a similar appearance in the proper clinical setting. Signed by: Alexey Paez MD on 12/31/2019 12:37 PM
[2019-12-31] MEDS ORDERED: ACETAMINOPHEN 325 MG TAB PO ONE (12:45)
--- NOTE | 2019-12-31 13:08 | NUR ---
covid 19 sample obtained and sent to lab for testing.
--- NOTE | 2019-12-31 13:20 | Emergency Department Note ---
History of Present Illnes History of Present Illness Chief Complaint: General Medicine Complaints History of Present Illness This is a 74 year old female HERE FOR SHAKING, WEAKNESS, CONFUSION. STATES THAT SHE FEELS TO WEAK. Historian: Patient, Family Member Arrival Mode: Car Vat Washer Required: No Onset (how long ago): day(s) (3) Location: GENERALIZED Quality: WEAKNESS Radiation: non-radiation Severity: severe Onset quality: gradual Duration (how long): day(s) (3) Timing of current episode: constant Progression: worsening Chronicity: new Context: recent illness Relieving factors: none Exacerbating factors: none Associated symptoms: confusion, weakness Treatments prior to arrival: none Past Medical/Family History Physician Review I have reviewed the patient's past medical and family history. Any updates have been documented here. Past Medical History Recent Fever: No Clinical Suspicion of Infectio: Yes New/Unexplained Change in Ment: No Past Medical History: Hypertension, [place], GERD, Hyperlipedemia Past Surgical History: Appendectomy, PCI Other Surgery: TONSILLECTOMY Social History Smoking Cessation: Never Smoker Counseling Performed: No Alcohol Use: None Any Illegal Drug Use: No TB Exposure/Symptoms: No Physically hurt or threatened: No Other Last Tetanus: UTD Any Pre-Existing Lines (PICC,: No Is patient up to date on immun: Yes Last Flu: UTD Last Pneumovax: UTD Review of Systems Review of Systems Constitutional: no symptoms EENTM: no symptoms Cardiovascular: no symptoms Respiratory: no symptoms Gastrointestinal: no symptoms Genitourinary: no symptoms Musculoskeletal: no symptoms Neurological: weakness (GENERALIZED), other (CONFUSION) Psychological: no symptoms Endocrine: no symptoms Hematological/Lymphatic: no symptoms Review of other systems All other systems reviewed and negative. Physical Exam Related Data Allergies: Uncoded Allergies: SULFA (Allergy, Severe, ORGAN SHUTDOWN, 02/28/11) Triage Vital Signs Vital Signs Date Time Temp Pulse Resp B/P (MAP) Pulse Ox O2 Delivery O2 Flow Rate FiO2 12/31/19 11:05 99.9 102 18 195/86 95 Vital signs reviewed: Yes Physical Exam CONSTITUTIONAL Constitutional: ill appearing HENT HENT: normocephalic, atraumatic, oropharynx clear/moist, nose normal HENT L/R: left ext ear normal, right ext ear normal EYES Eyes: PERRL, conjunctivae normal NECK Neck: ROM normal PULMONARY Pulmonary: effort normal, breath sounds normal CARDIOVASCULAR Cardiovascular: regular rhythm, heart sounds normal, capillary refill normal, normal rate GASTROINTESTINAL Abdominal: soft, nontender, bowel sounds normal GENITOURINARY Genitourinary: exam deferred SKIN Skin: warm, dry MUSCULOSKELETAL Musculoskeletal: ROM normal NEUROLOGICAL Neurological: alert, oriented x 3, weakness (GENERALIZED), other (SLOW TO RESPOND TO QUESTIONS, MILD TREMOR BILAT); sensory deficit PSYCHOLOGICAL Psychological: other (FLAT AFFECT) Results Laboratory Result Diagram: 12/31/19 1105 12/31/19 1105 Laboratory Laboratory Tests Test 12/31/19 11:05 White Blood Count 15.52 x10e3/uL (4.8-10.8) Red Blood Count 4.84 x10e6/uL (3.6-5.1) Hemoglobin 14.1 g/dL (12.0-16.0) Hematocrit 43.0 % (34.2-44.1) Mean Corpuscular Volume 88.8 fL (81-99) Mean Corpuscular Hemoglobin 29.1 pg (28-32) Mean Corpuscular Hemoglobin Concent 32.8 g/dL (31-35) Red Cell Distribution Width 16.1 % (11.7-14.4) Platelet Count 196 x10e3/uL (140-360) Neutrophils (%) (Auto) 83.3 % (38.7-80.0) Lymphocytes (%) (Auto) 8.8 % (18.0-39.1) Monocytes (%) (Auto) 5.8 % (4.4-11.3) Eosinophils (%) (Auto) 0.0 % (0.0-6.0) Basophils (%) (Auto) 0.3 % (0.0-1.0) Neutrophils # (Auto) 12.9 (2.1-6.9) Lymphocytes # (Auto) 1.4 (1.0-3.2) Monocytes # (Auto) 0.9 (0.2-0.8) Eosinophils # (Auto) 0.0 (0.0-0.4) Basophils # (Auto) 0.0 (0.0-0.1) Absolute Immature Granulocyte (auto 0.28 x10e3/uL (0-0.1) Prothrombin Time 13.9 seconds (11.9-14.5) Prothromb Time International Ratio 1.01 Activated Partial Thromboplast Time 31.9 seconds (23.8-35.5) Urine Color Yellow (YELLOW) Urine Clarity Sl cloudy (CLEAR) Urine pH 6.5 (5 - 7) Urine Specific [place] 1.015 (1.010-1.025) Urine Protein 2+ (NEGATIVE) Urine Glucose (UA) Negative (NEGATIVE) Urine Ketones Trace (NEGATIVE) Urine Blood Small (NEGATIVE) Urine Nitrite Negative (NEGATIVE) Urine Bilirubin Negative (NEGATIVE) Urine Urobilinogen 0.2 mg/dL (0.2 - 1) Urine Leukocyte Esterase Negative (NEGATIVE) Urine RBC 11-20 /HPF (0-5) Urine WBC 11-20 /HPF (0-5) Urine Epithelial Cells Few /LPF (NONE) Urine Bacteria Rare /HPF (NONE) Sodium Level 138 mmol/L (136-145) Potassium Level 3.4 mmol/L (3.5-5.1) Chloride Level 102 mmol/L (98-107) Carbon Dioxide Level 22 mmol/L (22-29) Anion Gap 17.4 mmol/L (8-16) Blood Urea Nitrogen 30 mg/dL (7-26) Creatinine 1.05 mg/dL (0.57-1.11) Estimat Glomerular Filtration Rate 52 ML/MIN (60-) BUN/Creatinine Ratio 29 (6-25) Glucose Level 152 mg/dL (74-118) Lactic Acid Level 2.4 mmol/L (0.5-2.0) Calcium Level 9.4 mg/dL (8.4-10.2) Magnesium Level 1.9 MG/DL (1.3-2.1) Total Bilirubin 0.9 mg/dL (0.2-1.2) Aspartate Amino Transf (AST/SGOT) 64 IU/L (5-34) Alanine Aminotransferase (ALT/SGPT) 24 IU/L (0-55) Alkaline Phosphatase 82 IU/L (40-150) Ammonia 37 UG/DL (31-123) Creatine Kinase 1977 IU/L (29-168) Creatine Kinase MB 3.30 ng/mL (0-5.0) Troponin I 0.084 ng/mL (0-0.300) B-Type Natriuretic Peptide 155.3 pg/mL (0-100) Total Protein 7.8 g/dL (6.5-8.1) Albumin 3.4 g/dL (3.5-5.0) Globulin 4.4 g/dL (2.3-3.5) Albumin/Globulin Ratio 0.8 (0.8-2.0) Lab results reviewed: Yes Imaging Imaging results reviewed: Yes Impressions EXAMINATION: CHEST SINGLE (NOT PORTABLE) INDICATION: Fever COMPARISON: Chest radiograph of 06/29/2019 FINDINGS: LINES/TUBES:None LUNGS:The lungs are well-inflated. Bibasilar patchy opacities. PLEURA:No pleural effusion or pneumothorax. MEDIASTINUM:The cardiomediastinal silhouette appears unchanged in size and shape. Atherosclerotic calcifications of the thoracic aorta. BONES/SOFT TISSUES:No acute osseous injury. ABDOMEN:No free air under the diaphragm. IMPRESSION: Bibasilar patchy opacities may represent atelectasis however superimposed aspiration or pneumonia could have a similar appearance in the proper clinical setting. Signed by: Alexey Paez MD on 12/31/2019 12:37 PM Examination: CT head without contrast Clinical Indication: Altered mental status. Technique: Transaxial noncontrast images from the skull base through the vertex were obtained. Sagittal and coronal reformatted images were done. Dose modulation, iterative reconstruction, and/or weight based adjustment of the mA/kV was utilized to reduce the radiation dose to as low as reasonably achievable. Comparison: Head CT dated 06/29/2019. Findings: Scalp: No abnormalities. Bones: Intact. No fractures. No blastic or lytic lesions. Brain sulci: Generalized volume loss for patient's age. Ventricles: No hydrocephalus. Extra-axial space: No abnormalities. Parenchyma: Again demonstrated are confluent areas of low-attenuation within subcortical and periventricular white matter, nonspecific, but could represent microvascular ischemic disease. No masses, hemorrhage, or acute or chronic cortical based vascular insults. Suprasellar region: No abnormalities. Craniocervical junction: The foramen magnum is patent. No Chiari one malformation. Incidental findings: Atherosclerotic calcification of the cavernous and supraclinoid internal carotid and V4 segments of the bilateral vertebral arteries. Impression: 1. No acute intracranial finding when compared to prior head CT dated 06/29/2019. 2. Unchanged chronic microvascular ischemic change and volume loss. Signed by: Dr. Marah Avila M.D. on 12/31/2019 12:16 PM Diagnostics Tests Diagnostic test(s) reviewed: Yes Procedures 12 Lead ECG Interpretation Vat Washer: Interpreted by ED physician Date: December 31, 2019 Time: 11:27 Rhythm: sinus rhythm Ectopy: PVC's Rate: normal (100) QRS axis: normal ST segments normal: Yes T waves normal: Yes Q waves: V3 Clinical Impression: abnormal ECG (FREQUENT PVC'S, POOR RWP) Critical Care Time Subsequent provider I assumed direction of critical care for this patient from another provider of my specialty. Assessment & Plan Reassessment Reassessment Course of Care: Sepsis time 1150 Source: suspected urine SIRS: HR >90, WBC>12K Organ Dysfunction: Lactic Acid >2.0 Blood cultures collected #1 Lactic Acid resulted 1150 Broad Spectrum Antibiotic given: ZOSYN Severe sepsis IVF's given, repeat Lactic pending Assessment & Plan Final Impression: (1) RHABDOMYOLYSIS (2) URINARY TRACT INFECTION, SITE NOT SPECIFIED (3) SEPSIS, UNSPECIFIED ORGANISM (4) PNEUMONIA, UNSPECIFIED ORGANISM Assessment & Plan admit to Dr Jarvis Amaral Disposition: ADMITTED Last Vital Signs Date Time Temp Pulse Resp B/P (MAP) Pulse Ox O2 Delivery O2 Flow Rate FiO2 12/31/19 12:35 100.7 12/31/19 11:33 90 20 96 Home Meds Reported Medications Omeprazole/Sodium Bicarbonate (ZEGERID 20 MG CAPSULE) 1 Each Capsule 12/31/19 Metaxalone (SKELAXIN) 800 Mg Tablet, 800 MG PO BID, #60 TAB 12/31/19 Aspirin (ASPIRIN EC) 81 Mg Tablet.dr, 81 MG PO DAILY, #30 TAB 06/29/19 Prasugrel Hcl (EFFIENT) 10 Mg Tablet, 10 MG PO DAILY, #30 TAB 06/29/19 Atorvastatin Calcium (ATORVASTATIN CALCIUM) 20 Mg Tablet, 40 MG PO BID, #30 TAB 06/29/19 Metoprolol Tartrate (METOPROLOL TARTRATE) 50 Mg Tablet, 50 MG PO BID, TAB 06/29/19 Discontinued Reported Medications Acetaminophen With Codeine (TYLENOL WITH CODEINE #3 TABLET) 1 Each Tablet, 300 MG PO Q6H PRN for Mild Pain (1-3) or Fever>100.8, TAB 06/30/19 Ranolazine (RANEXA) 500 Mg Tabsr, 500 MG PO BID, #60 TAB 06/29/19 Medications in the ED Pantoprazole Sodium 40 mg ONCE STAT IV Last administered on 12/31/19at 12:20; Admin Dose 40 MG; Start 12/31/19 at 11:05; Stop 12/31/19 at 11:06 Sodium Chloride 1,000 ml @ 0 mls/hr Q0M STAT IV Last administered on 12/31/19at 12:20; Admin Dose 999 MLS/HR; Start 12/31/19 at 11:05; Stop 12/31/19 at 11:06 Sodium Chloride 1,000 ml @ 0 mls/hr Q0M STAT IV Last administered on 12/31/19at 12:20; Admin Dose 999 MLS/HR; Start 12/31/19 at 12:03; Stop 12/31/19 at 12:04 Piperacillin Sod/ Tazobactam Sod 50 ml @ 50 mls/hr Q6H IV ; Start 12/31/19 at 12:15; Stop 01/07/20 at 12:14 Azithromycin 250 ml @ 200 mls/hr Q24H IV ; Start 12/31/19 at 13:00; Stop 01/07/20 at 12:59 Acetaminophen 975 mg ONCE ONCE PO ; Start 12/31/19 at 12:45; Stop 12/31/19 at 12:46; Status UNJOJO MCKEON MD December 31, 2019 13:20
[2019-12-31] MEDS ORDERED: SODIUM CHLORIDE 0.9% 1000ML 1,000 ML IV SCH (13:45)
[2019-12-31] MEDS: AZITHROMYCIN 500MG/NS 250 ML 250 ML IV SCH (13:48)
--- OUTSIDE RECORDS SUMMARY | 2019-12-31 14:03 | XMS REPORT ---
Author Author [facility] t Organization [facility] Address [address] [place] [address] Phone Unavailable Care Team Providers Care Hand Splitter Name Role Phone NO, PCP PCP Unavailable Divina RAMESH Attphys Unavailable Ferdinand Alanis MD Attphys PIPPA AHN Attphys Unavailable Payers Payer Name Policy Type Policy Number Effective Date Expiration Date S conor MEDICAREMEDICARE PART A AND Bxxxxxxxxxxx/08/2012-[facility] [place] 2013 00:00:00 [facility] Medicare A & B [id number] 2013 00:00:00 [facility] Problems Condition Name Condition Details Condition Category Status Onset Date Resolution Date Last Treatment Date Treating Clinician Comments Source Celiac artery stenosis Celiac artery stenosis Disease Active 2019-09-27 00:00:00 Last Assessment & Plan: Patient with asymptomatic celiac artery stenosis. Medical management sounds good. She will return to our clinic as needed. [facility] Anemia Anemia Problem Active [facility] Syncope Syncope Problem Active [facility] Allergies, Adverse Reactions, Alerts Allergy Name Allergy Type Status Severity Reaction(s) Onset Date Inacti ve Date Treating Clinician Comments Source Sulfa (Sulfonamide Antibiotics) Propensity to adverse reactions to drug Active Rash, Other (See Comments) 2019-09-27 00:00:00 Organ failure [place] [facility] SULFA Allergy to Substance Active Severe ORGAN SHUTDOWN 2011-02-28 0 0:00:00 [facility] Family History Family Member Diagnosis Comments Start Date Stop Date Source Natural brother Cancer [facility] ethodist Natural father Alzheimer's disease [place] Natural mother Cancer [place] [facility] Natural sister Cancer [place] [facility] Social History Social Habit Start [...] for Mild Pain (1 -3) Or Fever>100.8 [facility] Aspirin (Aspirin Ec) 81 Mg Tablet. Aspirin (Aspirin Ec) 81 Mg Tab let. Yes 81 Daily [facility] Atorvastatin Calcium 20 Mg Tablet Atorvastatin Calcium 20 Mg Tablet Yes 40 Twice A Day [facility] Metoprolol Tartrate 50 Mg Tablet Metoprolol Tartrate 50 Mg Tablet Yes 50 Twice A Day [facility] Prasugrel Hcl (Effient) 10 Mg Tablet Prasugrel Hcl (Effient) 10 Mg Tablet Yes 10 Daily [facility] Ranolazine (Ranexa) 500 Mg Tabsr Ranolazine (Ranexa) 500 Mg Tabsr Yes 500 Twice A Day [facility] Aliskiren/Hydrochlorothiazide (Tekturna Hct 150-12.5 M g Tab) 1 Each Tablet, Aliskiren/Hydrochlorothiazide (Tekturna Hct 150-12.5 Mg Tab) 1 Each Tablet, 2019-06-29 00:00:00 No Daily [facility] Esomeprazole Sodium (Nexium I.v.) 40 Mg Vial, Esomepra zole Sodium (Nexium I.v.) 40 Mg Vial, 2019-06-29 00:00:00 No Daily [facility] Fexofenadine Hcl (Kristi) 180 Mg Tablet, Fexofenadine Hcl (Kristi) 180 Mg Tablet, 2019-06-29 00:00:00 No Daily [facility] Simvastatin (Zocor) 40 Mg Tablet, Simvastatin (Zocor) 40 Mg Tabl et, 2019-06-29 00:00:00 No Daily [facility] Vital Signs Vital Name Observation Time Observation Value Comments Source Systolic blood pressure 2019-09-27 14:33:00 163 mm[Hg] [place] [facility] Diastolic blood pressure 2019-09-27 14:33:00 87 mm[Hg] [facility] Heart rate 2019-09-27 14:33:00 89 /min [facility] Body temperature 2019-09-27 14:33:00 36.83 [place] Body height 2019-09-27 14:33:00 165.1 cm [facility] Body weight 2019-09-27 14:33:00 78.2 kg [facility] BMI 2019-09-27 14:33:00 28.69 kg/m2 [facility] Procedures Procedure Date / Time Performed Performing Clinician [facility] e CT ABD/PELVIC EXTERNAL STUDY 2019-08-09 08:38:00 Chetna Alanis in [facility] Computed tomography of brain without radiopaque contrast 201 04-14-26 00:00:00 LOUANN ROSE [facility] Computed tomography of cervical spine without contrast 06-29 00:00:00 LOUANN ROSE [facility] Plan of Care Planned Activity Planned Date Details Comments Source Future Scheduled Test 2020-03-04 00:00:00 INFLUENZA VACCINE [code = INFLUENZA VACCINE] [facility] Future Scheduled Test 2012-11-12 00:00:00 65+ PNEUMOCOCCAL V ACCINE (2 of 2 - PPSV23) [code = 65+ PNEUMOCOCCAL VACCINE (2 of 2 - PPSV23)] [facility] Future Scheduled Test 1997-11-12 00:00:00 BREAST CANCER SCRE ENING [code = BREAST CANCER SCREENING] [facility] Future Scheduled Test 1997-11-12 00:00:00 COLONOSCOPY SCREEN ING [code = COLONOSCOPY SCREENING] [facility] Future Scheduled Test 1997-11-12 00:00:00 SHINGLES VACCINES (#1) [code = SHINGLES VACCINES (#1)] [facility] Encounters Start Date/Time End Date/Time Encounter Type Admission Type [facility] Care Department Encounter ID Source 2019-10-04 00:00:00 2019-10-04 00:00:00 Outpatient [facility] [id number] [facility] 2019-09-27 00:00:00 2019-09-27 00:00:00 Outpatient CHETNA ALANIS [facility] [id number] [facility] 2019-06-29 16:29:00 2019-06-30 17:05:00 Discharged Inpatient [address] [facility] [id number] [facility] Results Test Description Test Time Test Comments Results Result Comments Source CHEST SINGLE (NOT PORTABLE) 2019-12-31 12:36:00 [facility] [address] [place] [address] Patient Name: DOUG GOMEZ MR #: [id number] : 1945 Age/Sex: 74/F Req #: [id number] Adm Physician: Ordered by: JOJO RAMESH MD Report #: [id number] Location: ER Room/Bed: Procedure: DX/CHEST SINGLE (NOT PORTABLE) Exam Date: 12/31/19 Exam Time: 1140 REPORT STATUS: Signed EXAMINATION: CHEST SINGLE (NOT PORTABLE) INDICATION: Fever COMPARISON: Chest radiograph of 06/29/2019 FINDINGS: LINES/TUBES:None LUNGS:The lungs are well-inflated. Bibasilar patchy opacities. PLEURA:No pleural effusion or pneumothorax. MEDIASTINUM:The cardiomediastinal silhouette appears unchanged in size and shape. Atherosclerotic calcifications of the thoracic aorta. BONES/SOFT TISSUES:No acute osseous injury. ABDOMEN:No free air under the diaphragm. IMPRESSION: Bibasilar patchy opacities may represent atelectasis however superimposed aspiration or pneumonia could have a similar appearance in the proper clinical setting. Signed by: Patrick Mccarthy MD on 12/31/2019 12:37 PM Dictated By: PATRICK MCCARTHY MD 1237 Transcribed By: ZOIE on 12/31/19 1237 COPY TO: JOJO RAMESH MD CT BRAIN WO 2019-12-31 12:09:00 [place] [address] Patient Name: DOUG GOMEZ MR #: [id number] : 1945 Age/Sex: 74/F Req #: [id number] Adm Physician: Ordered by: JOJO RAMESH MD Report #: [id number] Location: ER Room/Bed: Procedure: CT/CT BRAIN WO Exam Date: 12/31/19 Exam Time: 1130 REPORT STATUS: Signed Examination: CT head without contrast Clinical Indication: Altered mental status. Technique: Transaxial noncontrast images from the skull base through the vertex were obtained. Sagittal and coronal reformatted images were done. Dose modulation, iterative reconstruction, and/or weight based adjustment of the mA/kV was utilized to reduce the radiation dose to as low as reasonably achievable. Comparison: Head CT dated 06/29/2019. Findings: Scalp: No abnormalities. Bones: Intact. No fractures. No blastic or lytic lesions. Brain sulci: Generalized volume loss for patient's age. Ventricles: No hydrocephalus. Extra-axial space: No abnormalities. Parenchyma: Again demonstrated are confluent areas of low-attenuation within subcortical and periventricular white matter, nonspecific, but could represent microvascular ischemic disease. No masses, hemorrhage, or acute or chronic cortical based vascular insults. Suprasellar region: No abnormalities. Craniocervical junction: The foramen magnum is patent. No Chiari one malformation. Incidental findings: Atherosclerotic calcification of the cavernous and supraclinoid internal carotid and V4 segments of the bilateral vertebral arteries. Impression: 1. No acute intracranial finding when compared to prior head CT dated 06/29/2019. 2. Unchanged chronic microvascular ischemic change and volume loss. Signed by: Dr. Renan Avila M.D. on 12/31/2019 12:16 PM Dictated By: RENAN AYALA MD 1216 Transcribed By: ZOIE on 12/31/19 1216 COPY TO: JOJO RAMESH MD CT Abd/Pelvic External Study 2019-10-04 09:49:08 This exam was not acquired at a [facility] facility and has not been interpreted by a Yazidi Provider. The exam was imported into our imaging system. [facility] CT ABDOMEN/PELVIS 2019-08-09 11:25:00 [place] [address] Patient Name: DOUG GOMEZ MR #: [id number] : 1945 Age/Sex: 73/F Req #: [id number] [facility] Physician: Ordered by: PIPPA AHN MD Report #: [id number] Location: CT Room/Bed: Procedure: [id number] CT/CT ABDOMEN/PELVIS W Exam Date: 08/09/19 Exam Time: 0830 REPORT STATUS: Signed EXAM: CT Abdomen and [...] 11:32 AM Dictated By: PATRICK MCCARTHY MD 113 Transcribed By: ZOIE on 08/09/19 113 COPY TO: PIPPA AHN MD Vitamin B12 Level 2019-06-30 12:49:00 Test Item Vitamin B12 Level (test code = 88371-0) 366 213-816 [facility] Thy[facility] Uzsqc8442-78-02 12:38:00* Test Item Value Reference Range Interpretation Comments Free Thyroxine Index (test code = 74521-9) 2.8405 1.4-3.8 [facility]Thyroxine (T4)2019-06-30 12:38:00* Test Item Value Reference Range Interpretation Comments Thyroxine (T4) (test code = 3026-2) 8.70 4.5-10.9 Our current method for Total T4 is not recommended for use as the only marker fo r evaluating patients for thyroid disorders.[facility]Triiodothyronine (T3) Kvdptw6598-38-90 12:38:00* Test Item Value Reference Range Interpretation Comments Triiodothyronine (T3) Uptake (test code = 3050-2) 32.65 22.5 -37.0 [facility] HospitalThyroid Stimulating Hormone (TSH) 2019-06-30 12:38:00* Test Item Value Reference Range Interpretation Comments Thyroid Stimulating Hormone (TSH) (test code = 23158-3) 2.423 0.350-4.940 [facility] HospitalIron Snjpf8941-95-81 12:15:00* Test Item Value Reference Range Interpretation Comments Iron Level (test code = 2498-4) 21 50-170 L [facility] HospitalTotal Iron Binding Supjwdmu8246-13-51 12:15:00* Test Item Value Reference Range Interpretation Comments Total Iron Binding Capacity (test code = 2500-7) 498 261-4 78 H [facility] HospitalPercent Iron Wyklgenozq4830-96-25 12:15:00* Test Item Value Reference Range Interpretation Comments Percent Iron Saturation (test code = 2502-3) 4 15-50 L [facility] HospitalTransferrin2019-11-27 12:15:00* Test Item Value Reference Range Interpretation Comments Transferrin (test code = 3034-6) 356 180-382 [facility] HospitalPercent Reticulocyte Jkonw5217-00-00 12:00:00* Test Item Value Reference Range Interpretation Comments Percent Reticulocyte Count (test code = 13401-3) 0.8 0.8-2 .2 [facility] HospitalPlatelet Bwvylveo1085-10-55 10:49:00* Test Item Value Reference Range Interpretation Comments Platelet Estimate (test code = 56064-6) ADEQUATE [facility] HospitalPlatelet Morphology Zwdgqtw9195-43-87 10:49:00* Test Item Value Reference Range Interpretation Comments Platelet Morphology Comment (test code = 80490-7) NORMAL [facility] HospitalHypochromasia2019-11-27 10:49:00* Test Item Value Reference Range Interpretation Comments Hypochromasia (test code = 728-6) MODERATE [facility] HospitalPoikilocytosis2019-11-27 10:49:00* Test Item Value Reference Range Interpretation Comments Poikilocytosis (test code = 779-9) SLIGHT [facility] HospitalAnisocytosis2019-11-27 10:49:00* Test Item Value Reference Range Interpretation Comments Anisocytosis (test code = 702-1) MODERATE [facility] HospitalMicrocytosis2019-11-27 10:49:00* Test Item Value Reference Range Interpretation Comments Microcytosis (test code = 741-9) MODERATE [facility] HospitalTarget Zfbpi9609-98-13 10:49:00* Test Item Value Reference Range Interpretation Comments Target Cells (test code = 90978-0) FEW [facility] HospitalTear Drop Dxfjy6533-55-00 10:49:00* Test Item Value Reference Range Interpretation Comments Tear Drop Cells (test code = 7791-7) FEW [facility] HospitalElliptocytes2019-11-27 10:49:00* Test Item Value Reference Range Interpretation Comments Elliptocytes (test code = 58933-4) SLIGHT [facility] HospitalRed Cell Morphology Ubibxzm0102-10-82 10:49:00* Test Item Value Reference Range Interpretation Comments Red Cell Morphology Comment (test code = 6742-1) ABNORMAL [facility]odium Rllfg5574-05-73 08:51:00* Test Item Value Reference Range Interpretation Comments Sodium Level (test code = 2951-2) 138 136-145 [facility] HospitalPotassium Upbiw2099-49-83 08:51:00* Test Item Value Reference Range Interpretation Comments Potassium Level (test code = 2823-3) 3.7 3.5-5.1 [facility] HospitalChloride Bvrhz7335-06-36 08:51:00* Test Item Value Reference Range Interpretation Comments Chloride Level (test code = 2075-0) 97 98-107 L [facility] HospitalCarbon Dioxide Alkja9645-57-91 08:51:00* Test Item Value Reference Range Interpretation Comments Carbon Dioxide Level (test code = 2028-9) [facility] HospitalAnion Nfx0633-52-90 08:51:00* Test Item Value Reference Range Interpretation Comments Anion Gap (test code = 84280-1) 19.7 8-16 H [facility] HospitalBlood Urea Jianmucf1166-53-23 08:51:00* Test Item Value Reference Range Interpretation Comments Blood Urea Nitrogen (test code = 3094-0) 12 02-26 [facility] HospitalCreatinine2019-11-27 08:51:00* Test Item Value Reference Range Interpretation Comments Creatinine (test code = 2160-0) 0.89 0.57-1.11 [facility] HospitalBUN/Creatinine Mphzl5915-93-36 08:51:00* Test Item Value Reference Range Interpretation Comments BUN/Creatinine Ratio (test code = 3097-3) 13 01-26 [facility] HospitalEstimat Glomerular Filtration Rate 2019-06-30 08:51:00* Test Item Value Reference Range Interpretation Comments Estimat Glomerular Filtration Rate (test code = 927496525) > 60 >60 Ranges were taken from the National Kidney Disease Education Program and the [facility] Kidney Foundation literature.Reference ranges:60 or greater: Lktcht30-98 ( for 3 consecutive months): Chronic kidney disease 15 or less: Kidney failureHemphill County HospitalGlucose Mqhdk1936-54-31 08:51:00* Test Item Value Reference Range Interpretation Comments Glucose Level (test code = OVT7283) 107 74-118 [facility] HospitalCalcium Csvvr3295-65-55 08:51:00* Test Item Value Reference Range Interpretation Comments Calcium Level (test code = 56345-6) 9.4 8.4-10.2 [facility] HospitalTotal Qzhumyqor4647-12-78 08:51:00* Test Item Value Reference Range Interpretation Comments Total Bilirubin (test code = 1975-2) 1.0 0.2-1.2 [facility] HospitalAspartate Amino Transf (AST/SGOT) 2019-06-30 08:51:00* Test Item Value Reference Range Interpretation Comments Aspartate Amino Transf (AST/SGOT) (test code = Aspartate Amino Transf (AST/SGOT)) 17 5-34 [facility] HospitalAlanine Aminotransferase (ALT/SGPT) 2019-06-30 08:51:00* Test Item Value Reference Range Interpretation Comments Alanine Aminotransferase (ALT/SGPT) (test code = 1742-6) 8 0-55 [facility] HospitalTotal Lrgbnjb2163-81-16 08:51:00* Test Item Value Reference Range Interpretation Comments Total Protein (test code = 2885-2) 8.0 6.5-8.1 [facility] HospitalAlbumin2019-11-27 08:51:00* Test Item Value Reference Range Interpretation Comments Albumin (test code = 1751-7) 3.7 3.5-5.0 [facility] HospitalGlobulin2019-11-27 08:51:00* Test Item Value Reference Range Interpretation Comments Globulin (test code = 39869-9) 4.3 2.3-3.5 H [facility] HospitalAlbumin/Globulin Sxbki1940-21-31 08:51:00 * Test Item Value Reference Range Interpretation Comments Albumin/Globulin Ratio (test code = 1759-0) 0.9 0.8-2.0 [facility] HospitalAlkaline Agangfcfbmx9539-76-93 08:51:00* Test Item Value Reference Range Interpretation Comments Alkaline Phosphatase (test code = 6768-6) 102 40-150 [facility] HospitalWhite Blood Mstwl9728-20-09 08:46:00* Test Item Value Reference Range Interpretation Comments White Blood Count (test code = 6690-2) 7.27 4.8-10.8 [facility] HospitalRed Blood Biuvh6273-25-63 08:46:00* Test Item Value Reference Range Interpretation Comments Red Blood Count (test code = 789-8) 5.09 3.6-5.1 [facility] HospitalHemoglobin2019-11-27 08:46:00* Test Item Value Reference Range Interpretation Comments Hemoglobin (test code = 22128-2) 9.2 12.0-16.0 L [facility] HospitalHematocrit2019-11-27 08:46:00* Test Item Value Reference Range Interpretation Comments Hematocrit (test code = 4544-3) 33.3 34.2-44.1 L [facility] HospitalMean Corpuscular Qauqfk6522-88-83 08:46:00* Test Item Value Reference Range Interpretation Comments Mean Corpuscular Volume (test code = 787-2) 65.4 81-99 L [facility] HospitalMean Corpuscular Kvqdzptywx4092-12-26 08:46:00* Test Item Value Reference Range Interpretation Comments Mean Corpuscular Hemoglobin (test code = 785-6) 18.1 28-32 L [facility] HospitalMean Corpuscular Hemoglobin Concent 2019-06-30 08:46:00* Test Item Value Reference Range Interpretation Comments Mean Corpuscular Hemoglobin Concent (test code = 786-4) 27.6 31-35 L [facility] HospitalRed Cell Distribution Furcr5049-04-61 08:46:00* Test Item Value Reference Range Interpretation Comments Red Cell Distribution Width (test code = 60451-7) 25.5 11.7 -14.4 H [facility] HospitalPlatelet Lrvad3241-44-69 08:46:00* Test Item Value Reference Range Interpretation Comments Platelet Count (test code = 777-3) 334 140-360 [facility] HospitalNeutrophils (%) (Auto)2019-06-30 08:46:00 * Test Item Value Reference Range Interpretation Comments Neutrophils (%) (Auto) (test code = 47157-4) 56.0 38.7-80.0 [facility] HospitalLymphocytes (%) (Auto)2019-06-30 08:46:00 * Test Item Value Reference Range Interpretation Comments Lymphocytes (%) (Auto) (test code = 736-9) 27.6 18.0-39.1 [facility] HospitalMonocytes (%) (Auto)2019-06-30 08:46:00* Test Item Value Reference Range Interpretation Comments Monocytes (%) (Auto) (test code = 5905-5) 12.9 4.4-11.3 H [facility] HospitalEosinophils (%) (Auto)2019-06-30 08:46:00 * Test Item Value Reference Range Interpretation Comments Eosinophils (%) (Auto) (test code = 713-8) 2.1 0.0-6.0 [facility] HospitalBasophils (%) (Auto)2019-06-30 08:46:00* Test Item Value Reference Range Interpretation Comments Basophils (%) (Auto) (test code = 706-2) 0.8 0.0-1.0 [facility] HospitalIM GRANULOCYTES %2019-06-30 08:46:00* Test Item Value Reference Range Interpretation Comments IM GRANULOCYTES % (test code = IM GRANULOCYTES %) 0.6 0.0- 1.0 [facility] HospitalNeutrophils # (Auto)2019-06-30 08:46:00* Test Item Value Reference Range Interpretation Comments Neutrophils # (Auto) (test code = 751-8) 4.1 2.1-6.9 [facility] HospitalLymphocytes # (Auto)2019-06-30 08:46:00* Test Item Value Reference Range Interpretation Comments Lymphocytes # (Auto) (test code = 17715-1) 2.0 1.0-3.2 [facility] HospitalMonocytes # (Auto)2019-06-30 08:46:00* Test Item Value Reference Range Interpretation Comments Monocytes # (Auto) (test code = 742-7) 0.9 0.2-0.8 H [facility] HospitalEosinophils # (Auto)2019-06-30 08:46:00* Test Item Value Reference Range Interpretation Comments Eosinophils # (Auto) (test code = 711-2) 0.2 0.0-0.4 [facility] HospitalBasophils # (Auto)2019-06-30 08:46:00* Test Item Value Reference Range Interpretation Comments Basophils # (Auto) (test code = 704-7) 0.1 0.0-0.1 [facility] HospitalAbsolute Immature Granulocyte (auto 2019-06-30 08:46:00* Test Item Value Reference Range Interpretation Comments Absolute Immature Granulocyte (auto (marni t code = Absolute Immature Granulocyte (auto) 0.04 0-0.1 [facility] HospitalCreatine Kinase YC6162-15-95 19:42:00* Test Item Value Reference Range Interpretation Comments Creatine Kinase MB (test code = 90708-4) 1.80 0-5.0 [facility] HospitalTroponin H2839-71-00 19:42:00* Test Item Value Reference Range Interpretation Comments Troponin I (test code = FZM7688) 0.007 0-0.300 [facility] HospitalCreatine Eskiol0892-00-02 19:31:00* Test Item Value Reference Range Interpretation Comments Creatine Kinase (test code = 2157-6) 68 29-168 [facility] HospitalPlatelet Uiapydgx6015-56-97 15:15:00* Test Item Value Reference Range Interpretation Comments Platelet Estimate (test code = 68723-4) SLIGHTLY INCREASED [facility] HospitalPlatelet Morphology Fsoeroa8920-08-76 15:15:00* Test Item Value Reference Range Interpretation Comments Platelet Morphology Comment (test code = 41121-2) NORMAL [facility] HospitalHypochromasia2019-11-26 15:15:00* Test Item Value Reference Range Interpretation Comments Hypochromasia (test code = 728-6) SLIGHT [facility] HospitalMacrocytosis2019-11-26 15:15:00* Test Item Value Reference Range Interpretation Comments Macrocytosis (test code = 738-5) SLIGHT [facility] HospitalOvalocytes2019-11-26 15:15:00* Test Item Value Reference Range Interpretation Comments Ovalocytes (test code = 774-0) FEW [facility] HospitalRed Cell Morphology Dwywehm6080-56-23 15:15:00* Test Item Value Reference Range Interpretation Comments Red Cell Morphology Comment (test code = 6742-1) NORMAL [facility] HospitalMacrocytosis2019-11-26 15:15:00* Test Item Value Reference Range Interpretation Comments Macrocytosis (test code = 738-5) SLIGHT [facility] HospitalOvalocytes2019-11-26 15:15:00* Test Item Value Reference Range Interpretation Comments Ovalocytes (test code = 774-0) FEW [facility] HospitalFOOT RIGHT PZMBNNWN2538-80-99 14:54:00 [facility] [address] [address] Patient Name: DOUG GOMEZ MR #: [id number] : 1945 Age/Sex: 73/F Req #: [id number] Adm Physician: Ordered by: LOUANN ROSE MEDIA DIRECTOR Report #: [id number] Location: Room/Bed: Procedure: [id number] DX/ FOOT RIGHT COMPLETE Exam Date: 06/29/19 Exam Time: 1 230 REPORT STATUS: Signed EXAMIN ATION: FOOT RIGHT COMPLETE INDICATION: Trauma COMPARISON: None FINDINGS: No acute fracture or dislocation. Alignment is anatomic. Minimal scattered degenerative changes. Soft tissues appear unremarkable. IMPRESSION: No acute osseous injury. Signed by: Patrick Mccarthy MD on 06/29 3:40 PM Dictated By: PATRICK MCCARTHY MD 1540 Transcribed By: ZOIE on 06/29/19 1540 COPY T O: LOUANN RSOE MEDIA DIRECTOR Stool Occult Vzppe9319-85-73 14:30:00* Test Item Value Reference Range Interpretation Comments Stool Occult Blood (test code = 2335-8) NEGATIVE NEGATIVE [facility] Occult Anlid3106-18-10 14:30:00* Test Item Value Reference Range Interpretation Comments Stool Occult Blood (test code = 2335-8) NEGATIVE NEGATIVE [facility] HospitalUrine BWK5992-41-80 13:44:00* Test Item Value Reference Range Interpretation Comments Urine WBC (test code = 5821-4) 0-5 0-5 [facility] WWA9959-49-71 13:44:00* Test Item Value Reference Range Interpretation Comments Urine RBC (test code = 64117-3) NONE 0-5 [facility] HospitalUrine Ceftweoa3266-27-16 13:44:00* Test Item Value Reference Range Interpretation Comments Urine Bacteria (test code = 52884-5) RARE NONE [facility] HospitalUrine Epithelial Ldofe6065-71-50 13:44:00 * Test Item Value Reference Range Interpretation Comments Urine Epithelial Cells (test code = 23821-9) FEW NONE [facility] HospitalUrine DDH8481-84-18 13:44:00* Test Item Value Reference Range Interpretation Comments Urine WBC (test code = 5821-4) 0-5 0-5 [facility] HospitalU[facility] TUT7400-37-83 13:44:00* Test Item Value Reference Range Interpretation Comments Urine RBC (test code = 27764-1) NONE 0-5 [facility] HospitalUrine Vpqvqiex7566-47-67 13:44:00* Test Item Value Reference Range Interpretation Comments Urine Bacteria (test code = 29207-4) RARE NONE [facility]helial Jngyk8982-89-61 13:44:00 * Test Item Value Reference Range Interpretation Comments Urine Epithelial Cells (test code = 10999-6) FEW NONE [facility] Pigyq1008-67-78 13:31:00* Test Item Value Reference Range Interpretation Comments Urine Color (test code = 5778-6) YELLOW YELLOW [facility] Phpttem5458-02-82 13:31:00* Test Item Value Reference Range Interpretation Comments Urine Clarity (test code = 04591-7) CLEAR CLEAR [facility] Specific Xjzides3030-11-75 13:31:00 * Test Item Value Reference Range Interpretation Comments Urine Specific [place] (test code = 5811-5) 1.010 1.010-1.02 5 [facility] fF9379-82-03 13:31:00* Test Item Value Reference Range Interpretation Comments Urine pH (test code = 29696-6) 7 5-7 [facility] Leukocyte Nojkiono4423-89-23 13:31:00* Test Item Value Reference Range Interpretation Comments Urine Leukocyte Esterase (test code = 08814-7) SMALL NEGATIV E [facility] Xgmqtgj1807-60-66 13:31:00* Test Item Value Reference Range Interpretation Comments Urine Nitrite (test code = 88108-9) NEGATIVE NEGATIVE [facility] Xxkeifz6289-89-01 13:31:00* Test Item Value Reference Range Interpretation Comments Urine Protein (test code = 70186-3) NEGATIVE NEGATIVE [facility] Glucose (UA)2019-06-29 13:31:00* Test Item Value Reference Range Interpretation Comments Urine Glucose (UA) (test code = 82407-3) NEGATIVE NEGATIVE [facility] Agzhfix1511-90-78 13:31:00* Test Item Value Reference Range Interpretation Comments Urine Ketones (test code = 17210-2) NEGATIVE NEGATIVE [facility] Wargynjrturs0630-03-72 13:31:00* Test Item Value Reference Range Interpretation Comments Urine Urobilinogen (test code = 20337-7) 0.2 0.2-1 [facility] Vobaznafm7661-35-33 13:31:00* Test Item Value Reference Range Interpretation Comments Urine Bilirubin (test code = 1977-8) NEGATIVE NEGATIVE [facility] Kemwf0256-96-47 13:31:00* Test Item Value Reference Range Interpretation Comments Urine Blood (test code = 18185-5) NEGATIVE NEGATIVE [facility] Vqcrf2136-28-88 13:31:00* Test Item Value Reference Range Interpretation Comments Urine Color (test code = 5778-6) YELLOW YELLOW [facility] Ukkjrwy0359-01-10 13:31:00* Test Item Value Reference Range Interpretation Comments Urine Clarity (test code = 05649-4) CLEAR CLEAR [facility] Specific Frnoukl8077-74-48 13:31:00 * Test Item Value Reference Range Interpretation Comments Urine Specific [place] (test code = 5811-5) 1.010 1.010-1.02 5 [facility] wH6553-65-40 13:31:00* Test Item Value Reference Range Interpretation Comments Urine pH (test code = 94323-7) 7 5-7 [facility] Leukocyte Rqtfgjsc6606-32-80 13:31:00* Test Item Value Reference Range Interpretation Comments Urine Leukocyte Esterase (test code = 87305-7) SMALL NEGATIV E [facility] Ocsmvij6298-65-45 13:31:00* Test Item Value Reference Range Interpretation Comments Urine Nitrite (test code = 05895-6) NEGATIVE NEGATIVE [facility] Sjdhcrz1104-98-79 13:31:00* Test Item Value Reference Range Interpretation Comments Urine Protein (test code = 98992-8) NEGATIVE NEGATIVE [facility] Glucose (UA)2019-06-29 13:31:00* Test Item Value Reference Range Interpretation Comments Urine Glucose (UA) (test code = 58460-2) NEGATIVE NEGATIVE [facility] Drajhkv9469-47-07 13:31:00* Test Item Value Reference Range Interpretation Comments Urine Ketones (test code = 38722-8) NEGATIVE NEGATIVE [facility] Yvrmcjneltfw9578-26-07 13:31:00* Test Item Value Reference Range Interpretation Comments Urine Urobilinogen (test code = 90520-8) 0.2 0.2-1 [facility] Cgmvjbtye9484-38-41 13:31:00* Test Item Value Reference Range Interpretation Comments Urine Bilirubin (test code = 1977-8) NEGATIVE NEGATIVE [facility] Jyveu1777-57-55 13:31:00* Test Item Value Reference Range Interpretation Comments Urine Blood (test code = 98510-3) NEGATIVE NEGATIVE [facility] HM5249-57-26 13:17:00 [place] [address] Patient Name: DOUG GOMEZ MR #: [id number] : 1945 Age/Sex: 73/F Req #: [id number] Adm Physician: Ordered by: LOUANN ROSE MEDIA DIRECTOR Report #: [id number] Location: ER Room/Bed: Procedure: [id number] CT/ CT CERVICAL SPINE WO Exam Date: [...] on 06/29/19 1322 COPY TO: LOUANN SINGLETON MEDIA DIRECTOR CT BRAIN [id number] 13:15:00 [place] [address] Patient Name: DOUG GOMEZ MR #: [id number] : 1945 Age/Sex: 73/F Req #: [id number] Adm Physician: Ordered by: LOUANN ROSE MEDIA DIRECTOR Report #: [id number] Location: ER Room/Bed: Procedure: [id number] CT/ CT BRAIN WO Exam Date: 06/29/19 [...] PRYOR MD 16 Transcribed By: ZOIE on 1316 COPY TO: LOUANN ROSE NP CHEST SINGLE (PORTABLE) 2019-06-29 13:04:00 [place] [address] Patient Name: DOUG GOMEZ MR #: [id number] : 1945 Age/Sex: 73/F Req #: [id number] Adm Physician: Ordered by: LOUANN ROSE NP Report #: [id number] Location: Room/Bed: Procedure: [id number] DX/ CHEST SINGLE (PORTABLE) Exam Date: Exam [...] 1:05 PM Dictated By: PATRICK MCCARTHY MD 1305 Tr anscribed By: ZOIE on 06/29/19 1305 COPY TO: LOUANN ROSE MEDIA DIRECTOR Sodium Kvjiy7169-66-70 12:59:00* Test Item Value Reference Range Interpretation Comments Sodium Level (test code = 2951-2) 135 136-145 L [facility] Evybk5947-04-40 12:59:00* Test Item Value Reference Range Interpretation Comments Potassium Level (test code = 2823-3) 3.6 3.5-5.1 [facility]Chloride Zoetr9971-01-91 12:59:00* Test Item Value Reference Range Interpretation Comments Chloride Level (test code = 2075-0) 101 98-107 [facility] Dioxide Mkakq6673-59-05 12:59:00* Test Item Value Reference Range Interpretation Comments Carbon Dioxide Level (test code = 2028-9) 24 22-29 [facility]Anion Hsw0067-15-99 12:59:00* Test Item Value Reference Range Interpretation Comments Anion Gap (test code = 92737-4) 13.6 8-16 [facility] Urea Xymspcok7550-26-35 12:59:00* Test Item Value Reference Range Interpretation Comments Blood Urea Nitrogen (test code = 3094-0) 15 7-26 [facility]inine2019-11-26 12:59:00* Test Item Value Reference Range Interpretation Comments Creatinine (test code = 2160-0) 0.78 0.57-1.11 [facility]UN/Creatinine Pcqux2533-14-99 12:59:00* Test Item Value Reference Range Interpretation Comments BUN/Creatinine Ratio (test code = 3097-3) 19 6-25 [facility]Estimat Glomerular Filtration Rate 2019-06-29 12:59:00* Test Item Value Reference Range Interpretation Comments Estimat Glomerular Filtration Rate (test code = 566291068) > 60 >60 Ranges were taken from the National Kidney Disease Education Program and the [facility] literature.Reference ranges:60 or greater: Ojwubn14-39 ( for 3 consecutive months): Chronic kidney disease 15 or less: Kidney failureHemphill County HospitalGlucose Mzkcr8792-55-00 12:59:00* Test Item Value Reference Range Interpretation Comments Glucose Level (test code = WEO4931) 120 74-118 H [facility]Calcium Zoxms8758-99-88 12:59:00* Test Item Value Reference Range Interpretation Comments Calcium Level (test code = 22253-9) 9.4 8.4-10.2 [facility]Magnesium Hgaqr8159-39-88 12:59:00* Test Item Value Reference Range Interpretation Comments Magnesium Level (test code = 63446-4) 1.9 1.3-2.1 [facility] HospitalTotal Fprkyudau7467-36-78 12:59:00* Test Item Value Reference Range Interpretation Comments Total Bilirubin (test code = 1975-2) 0.5 0.2-1.2 [facility] HospitalAspartate Amino Transf (AST/SGOT) 2019-06-29 12:59:00* Test Item Value Reference Range Interpretation Comments Aspartate Amino Transf (AST/SGOT) (test code = Aspartate Amino Transf (AST/SGOT)) 15 5-34 [facility] HospitalAlanine Aminotransferase (ALT/SGPT) 2019-06-29 12:59:00* Test Item Value Reference Range Interpretation Comments Alanine Aminotransferase (ALT/SGPT) (test code = 1742-6) 9 0-55 [facility]Total Sgcqzzh2966-47-61 12:59:00* Test Item Value Reference Range Interpretation Comments Total Protein (test code = 2885-2) 7.7 6.5-8.1 [facility]Albumin2019-11-26 12:59:00* Test Item Value Reference Range Interpretation Comments Albumin (test code = 1751-7) 3.6 3.5-5.0 [facility]Globulin2019-11-26 12:59:00* Test Item Value Reference Range Interpretation Comments Globulin (test code = 56169-2) 4.1 2.3-3.5 H [facility] HospitalAlbumin/Globulin Bwchm4983-95-94 12:59:00 * Test Item Value Reference Range Interpretation Comments Albumin/Globulin Ratio (test code = 1759-0) 0.9 0.8-2.0 [facility] HospitalAlkaline Vshbpleorhr6234-38-23 12:59:00* Test Item Value Reference Range Interpretation Comments Alkaline Phosphatase (test code = 6768-6) 96 40-150 [facility] HospitalB-Type Natriuretic Yiyilew5002-69-67 12:59:00* Test Item Value Reference Range Interpretation Comments B-Type Natriuretic Peptide (test code = 79868-4) 177.4 0-100 H [facility] HospitalCreatine Wfoivt2531-03-73 12:59:00* Test Item Value Reference Range Interpretation Comments Creatine Kinase (test code = 2157-6) 80 29-168 [facility]Creat[facility] Kinase MV3489-92-53 12:59:00* Test Item Value Reference Range Interpretation Comments Creatine Kinase MB (test code = 45635-0) 1.90 0-5.0 [facility] HospitalTroponin U4060-04-12 12:59:00* Test Item Value Reference Range Interpretation Comments Troponin I (test code = MGD6262) 0.012 0-0.300 [facility]Magnesium Mcxrp7442-66-97 12:59:00* Test Item Value Reference Range Interpretation Comments Magnesium Level (test code = 48799-6) 1.9 1.3-2.1 [facility] Natriuretic Rmyqnxk1209-91-30 12:59:00* Test Item Value Reference Range Interpretation Comments B-Type Natriuretic Peptide (test code = 17433-8) 177.4 0-100 H [facility] HospitalProthrombin Ofge2277-37-72 12:40:00* Test Item Value Reference Range Interpretation Comments Prothrombin Time (test code = 5902-2) 14.0 11.9-14.5 [facility] HospitalProthromb Time International Ratio 2019-06-29 12:40:00* Test Item Value Reference Range Interpretation Comments Prothromb Time International Ratio (test code = 6301-6) 1.03 Oral Anticoagulant Therapy INR Values:1. Low Intensity Therapy 1.5 - 2.02 . Moderate Intensity Therapy 2.0 - 3.03. High Intensity Therapy(1) 2.5 - 3. 54. High Intensity Therapy(2) 3.0 - 4.05. Panic Value INR > 5.0 [facility] HospitalActivated Partial Thromboplast Time 2019-06-29 12:40:00* Test Item Value Reference Range Interpretation Comments Activated Partial Thromboplast Time (test code = 11075-1) 27.7 23.8-35.5 [facility] HospitalProthrombin Rgzu0254-28-59 12:40:00* Test Item Value Reference Range Interpretation Comments Prothrombin Time (test code = 5902-2) 14.0 11.9-14.5 [facility] HospitalProthromb Time International Ratio 2019-06-29 12:40:00* Test Item Value Reference Range Interpretation Comments Prothromb Time International Ratio (test code = 6301-6) 1.03 Oral Anticoagulant Therapy INR Values:1. Low Intensity Therapy 1.5 - 2.02 . Moderate Intensity Therapy 2.0 - 3.03. High Intensity Therapy(1) 2.5 - 3. 54. High Intensity Therapy(2) 3.0 - 4.05. Panic Value INR > 5.0 [facility] HospitalActivated Partial Thromboplast Time 2019-06-29 12:40:00* Test Item Value Reference Range Interpretation Comments Activated Partial Thromboplast Time (test code = 01680-4) 27.7 23.8-35.5 [facility] HospitalWhite Blood Qwdfr8515-45-22 12:26:00* Test Item Value Reference Range Interpretation Comments White Blood Count (test code = 6690-2) 7.97 4.8-10.8 [facility]Red Blood Xbexc2542-15-19 12:26:00* Test Item Value Reference Range Interpretation Comments Red Blood Count (test code = 789-8) 3.97 3.6-5.1 [facility] HospitalHemoglobin2019-11-26 12:26:00* Test Item Value Reference Range Interpretation Comments Hemoglobin (test code = 87622-0) 6.1 12.0-16.0 LL Results repeated and called to DR. RAMESH at 1225 on 06/29/19 by Marco Coleman. Faith d back and verified.[facility] HospitalHematocrit2019-11-26 12:26:00* Test Item Value Reference Range Interpretation Comments Hematocrit (test code = 4544-3) 23.8 34.2-44.1 L [facility] HospitalMean Corpuscular Lwngyc0321-21-10 12:26:00* Test Item Value Reference Range Interpretation Comments Mean Corpuscular Volume (test code = 787-2) 59.9 81-99 L [facility] HospitalMean Corpuscular Bkyypsewzv9301-94-88 12:26:00* Test Item Value Reference Range Interpretation Comments Mean Corpuscular Hemoglobin (test code = 785-6) 15.4 28-32 L [facility] HospitalMean Corpuscular Hemoglobin Concent 2019-06-29 12:26:00* Test Item Value Reference Range Interpretation Comments Mean Corpuscular Hemoglobin Concent (test code = 786-4) 25.6 31-35 L [facility] HospitalRed Cell Distribution Fgpmv5998-89-74 12:26:00* Test Item Value Reference Range Interpretation Comments Red Cell Distribution Width (test code = 15710-5) 21.1 11.7 -14.4 H [facility] HospitalPlatelet Pnwpp2868-16-81 12:26:00* Test Item Value Reference Range Interpretation Comments Platelet Count (test code = 777-3) 419 140-360 H [facility] HospitalNeutrophils (%) (Auto)2019-06-29 12:26:00 * Test Item Value Reference Range Interpretation Comments Neutrophils (%) (Auto) (test code = 25915-6) 63.7 38.7-80.0 [facility] HospitalLymphocytes (%) (Auto)2019-06-29 12:26:00 * Test Item Value Reference Range Interpretation Comments Lymphocytes (%) (Auto) (test code = 736-9) 23.8 18.0-39.1 [facility]Monocytes (%) (Auto)2019-06-29 12:26:00* Test Item Value Reference Range Interpretation Comments Monocytes (%) (Auto) (test code = 5905-5) 10.4 4.4-11.3 [facility]Eosinophils (%) (Auto)2019-06-29 12:26:00 * Test Item Value Reference Range Interpretation Comments Eosinophils (%) (Auto) (test code = 713-8) 0.8 0.0-6.0 [facility]Basophils (%) (Auto)2019-06-29 12:26:00* Test Item Value Reference Range Interpretation Comments Basophils (%) (Auto) (test code = 706-2) 0.8 0.0-1.0 [facility] HospitalIM GRANULOCYTES %2019-06-29 12:26:00* Test Item Value Reference Range Interpretation Comments IM GRANULOCYTES % (test code = IM GRANULOCYTES %) 0.5 0.0- 1.0 [facility]Neutrophils # (Auto)2019-06-29 12:26:00* Test Item Value Reference Range Interpretation Comments Neutrophils # (Auto) (test code = 751-8) 5.1 2.1-6.9 [facility] HospitalLymphocytes # (Auto)2019-06-29 12:26:00* Test Item Value Reference Range Interpretation Comments Lymphocytes # (Auto) (test code = 15133-1) 1.9 1.0-3.2 [facility]Monocytes # (Auto)2019-06-29 12:26:00* Test Item Value Reference Range Interpretation Comments Monocytes # (Auto) (test code = 742-7) 0.8 0.2-0.8 [facility]Eosinophils # (Auto)2019-06-29 12:26:00* Test Item Value Reference Range Interpretation Comments Eosinophils # (Auto) (test code = 711-2) 0.1 0.0-0.4 [facility]Basophils # (Auto)2019-06-29 12:26:00* Test Item Value Reference Range Interpretation Comments Basophils # (Auto) (test code = 704-7) 0.1 0.0-0.1 [facility] HospitalAbsolute Immature Granulocyte (auto 2019-06-29 12:26:00* Test Item Value Reference Range Interpretation Comments Absolute Immature Granulocyte (auto (marni t code = Absolute Immature Granulocyte (auto) 0.04 0-0.1 [facility]
--- OUTSIDE RECORDS SUMMARY | 2019-12-31 14:03 | XMS REPORT | Clinical Summary ---
Author Author [facility] Address Unknown Phone Unavailable Care Team Providers Care Shingle Grader Name Role Phone Wilbur Bruno MD PCP [...] Comments Vital Sign 163/87 09/27/2019 2:33 PM [facility] PRE[facility] Blood Pressure 89 09/27/2019 2:33 PM [facility] PREPARER Pulse 36.8 C (98.3 F) 09/27/2019 2:33 PM BE[facility] PREPARER Temperature - - Respiratory Rate - - Oxygen Saturation - - Inhaled Oxygen Concentration 78.2 kg (172 lb 6.4 oz) 09/27/2019 2:33 PM BE[facility] PREPARER Weight 165.1 cm (5' 5") 09/27/2019 2:33 PM BEAD PREPARER Height 28.69 09/27/2019 2:33 PM BE[facility] PREPARER Body Mass Index Plan of Treatment Health Maintenance Due Date Last Done Comments BREAST CANCER SCREENING 11/12/1997 COLONOSCOPY SCREENING 11/12/1997 SHINGLES VACCINES (#1) 11/12/1997 65+ PNEUMOCOCCAL VACCINE 11/12/2012 05/17/2015 (2 of 2 - PPSV23) INFLUENZA VACCINE 03/04/2020 05/17/2015 Procedures Comments Procedure Name Priority Date/Time Associated Diag nosis CT ABD/PELVIC EXTERNAL Routine 08/09/2019 STUDY 8:38 AM BE[facility] PREPARER after 12/30/2018 Results * CT Abd/Pelvic External Study (08/09/2019 8:38 AM BEAD PREPARER) Specimen Narrative Performed At This exam was not acquired at a [facility] facility an d has not been [facility] interpreted by a [facility] Provider. The exam was imported into our imaging system. Performing Organization Address City/State/Zipcode Ph one Number [facility] [address] [place] [address] after 12/30/2018 Insurance Type Payer Benefit Subscriber ID Effective Phone Address Plan / Dates Group Medicare MEDICARE MEDICARE xxxxxxxxxxx [id number] [place], PART A AND resent [place] [address] 1 Advance Directives For more information, please contact: [phone] Patient Manager Event Explanation Type Date Recorded Advance Directives, Living Will and Medical Power of Research Professor Of Biostatistics
--- NOTE | 2019-12-31 15:23 | NUR ---
infectious diseases consult his is a 74 year old female HERE FOR SHAKING, WEAKNESS, CONFUSION. STATES THAT SHE FEELS TO WEAK. Historian: Patient, Family Member Arrival Mode: Car Curer Acid Drum Required: No Onset (how long ago): day(s) (3) Location: GENERALIZED Quality: WEAKNESS Radiation: non-radiation Severity: severe Onset quality: gradual Duration (how long): day(s) (3) Timing of current episode: constant Progression: worsening Chronicity: new Context: recent illness Relieving factors: none Exacerbating factors: none Associated symptoms: confusion, weakness Treatments prior to arrival: none [id number]
[2019-12-31] MEDS ORDERED: ZOLPIDEM TARTRATE 5 MG TAB PO PRN (16:45)
[2019-12-31] MEDS ORDERED: ACETAMINOPHEN 325 MG TAB PO PRN (17:15)
[2019-12-31] MEDS ORDERED: HYDRALAZINE HCL 20 MG/ML VIAL IV PRN (17:15)
[2019-12-31] MEDS ORDERED: ONDANSETRON HCL INJ 2MG/ML 2ML 2 MG/ML VIAL IV PRN (17:15)
[2019-12-31] MEDS: METOPROLOL TARTRATE 50 MG TAB PO SCH (17:36)
[2019-12-31] MEDS: CEFTRIAXONE SOD 1 GM/NS 50 ML 50 ML IV SCH (17:37)
[2019-12-31 17:47] VITALS: BP 138/54
[2019-12-31 17:48] VITALS: BP 138/54
[2019-12-31 17:56] VITALS: BP 138/54
--- NOTE | 2019-12-31 18:51 | Consultation ---
DATE OF CONSULTATION: Pulmonary Critical Care consultation CHIEF COMPLAINT: Lightheadedness and foot pain. HISTORY OF PRESENT ILLNESS: The patient is a 74-year-old woman. She has a history of unexplained anemia that required admission to [facility] in June of 2019 and August of 2019. Her GI workup was negative. She received transfusions. She has also been receiving iron through Dr. Pollack's office. She now complains of pain in her foot and lightheadedness. She feels dizzy and shaky. She denies any fever or cough. After arriving in the emergency department, she was found to have infiltrates on her chest x-ray and was placed in isolation. She also received IV fluids, which has helped her dizziness and symptoms. PAST SURGICAL HISTORY: Status post cardiac stents. PAST MEDICAL HISTORY: 1. Unexplained anemia, requiring transfusions. 2. Coronary artery disease. 3. Hypertension. SOCIAL HISTORY: The patient is not an active smoker or drinker. ALLERGIES: THE PATIENT IS ALLERGIC TO SULFA. FAMILY HISTORY: Family history is noncontributory. REVIEW OF SYSTEMS: The patient has no fevers. She has no headache. She has no neck pain. She is having no chest pain. She does not have any difficulty breathing. Shows abdominal pain. She has no nausea or vomiting. She has no leg edema. She has no neurological complaints. PHYSICAL EXAMINATION: VITAL SIGNS: The blood pressure is 134/55, saturation is 95%, and the pulse is 92. HEENT: Shows no facial swelling or erythema. CARDIAC: Reveals regular rate and rhythm with normal S1 and S2. LUNGS: Auscultation of lungs reveals clear breath sounds bilaterally. There is no wheezing. ABDOMEN: Soft and nontender. There is no rebound or guarding. EXTREMITIES: Shows no leg edema or calf tenderness. There is no cyanosis or clubbing. SKIN: Shows no rashes. LABORATORY DATA: White blood cell count is 15.5 and the hemoglobin is 14.1. The platelet count is 196. The BUN to creatinine ratio is 30 to 1.05. The lactic acid is 2.4 and the glucose is 152. AST is 64. RADIOGRAPHIC DATA: Chest x-ray shows bilateral infiltrates. IMPRESSION: 1. Community-acquired pneumonia. 2. Acute kidney injury. 3. Leukocytosis. 4. Coronary artery disease. 5. Hypertension. PLAN: 1. Continue current antibiotics. 2. Continue isolation until coronavirus test is negative. 3. IV fluids. 4. Monitor electrolytes, BUN and creatinine and blood counts. MD SELENA Marinelli/MARK /[id number]
--- NOTE | 2019-12-31 19:29 | Diagnostic Imaging Report ---
EXAMINATION: CT scan of the chest without contrast. TECHNIQUE: Helical CT images of the chest were performed from the lung apices to the level of the adrenal glands. No intravenous contrast was administered Coronal and sagittal reformatted images were obtained. Dose modulation, iterative reconstruction, and/or weight based adjustment of the mA/kV was utilized to reduce the radiation dose to as low as reasonably achievable. COMPARISON: None. CLINICAL HISTORY:Sepsis, pneumonia DISCUSSION: ABSENCE OF INTRAVENOUS CONTRAST DECREASES SENSITIVITY FOR DETECTION OF FOCAL LESIONS AND VASCULAR PATHOLOGY. LINES/TUBES: None. LUNGS AND AIRWAYS: Right middle lobe and lower lobe pneumonia with air bronchograms. Additional scattered areas of atelectasis. Left lower lobe pulmonary cyst. PLEURA: No pneumothorax or pleural effusions. HEART AND MEDIASTINUM: The thyroid gland is normal. Coronary artery calcifications. LYMPH NODES: There is no mediastinal, hilar or axillary lymphadenopathy. ABDOMEN: Limited contrast-enhanced views of the upper abdomen show no abnormality within the visualized liver, spleen, pancreas, or kidneys. The adrenal glands are normal. BONES AND SOFT TISSUES: Multilevel degenerative disc disease with Schmorl's nodes. IMPRESSION: Right middle and lower lobe consolidative pneumonia. Additional areas of atelectasis. Signed by: Dr. Eh Vale M.D. on 12/31/2019 7:25 PM
[2019-12-31 19:35] LABS: CREATINE KINASE MB 4.1 ng/mL (0-5.0)
[2019-12-31 20:00] VITALS: BP 124/60
--- NOTE | 2019-12-31 20:19 | NUR ---
COVID RESULTED NEGATIVE, MD GIVENS CALLED, ORDER TRANSFER TO MED-SURG FLOOR, PATIENT MADE AWARE OF HER RESULTS AND PENDING ROOM REASSIGNMENT
--- NOTE | 2019-12-31 22:22 | Consultation ---
DATE OF CONSULTATION: REASON FOR CONSULTATION: Fatigue. HISTORY OF PRESENT ILLNESS: This patient is a very pleasant 74-year-old white female, comes in with fever, not feeling well, weak all over. She also has numbness and tingling sensation in the right leg. She has been sick for the last few days. The patient came to the emergency room and she was admitted. The patient was currently lying in bed comfortably. PAST MEDICAL HISTORY: The patient has history of obesity, hypertension, coronary artery disease, hyperlipidemia, GERD and myocardial infarction. PAST SURGICAL HISTORY: Appendectomy and tonsillectomy. ALLERGIES: NKA. SOCIAL HISTORY: There is no smoking, drug abuse, or alcohol abuse. FAMILY HISTORY: Otherwise, noncontributory. REVIEW OF SYSTEMS: HEENT: Negative. PULMONARY: Negative. CARDIAC: Negative. : Negative. GI: Negative. SKIN: There are no other rashes. The patient was here back in August and in June. The patient had anemia and syncopal episode. The patient's review of systems otherwise unremarkable. PHYSICAL EXAMINATION: GENERAL: She is currently alert, oriented, does not seem to be in acute distress. VITAL SIGNS: Stable. Afebrile. T-max was 100.7 just a couple hours ago. HEENT: She is not icteric. NECK: Supple. CHEST: Clear. HEART: S1, S2. No murmur. ABDOMEN: Soft. Bowel sounds present. No tenderness. EXTREMITIES: No edema. SKIN: No rash. JOINT: No edema or erythema. RADIOGRAPHIC DATA: Chest x-ray showed atelectasis, but pneumonia is a possibility, concerned about aspiration. MEDICATIONS: Azithromycin and Zosyn. IMPRESSION: Fever, chills, fatigue, concerned about aspiration pneumonia. I agree with Cheyannesyn. Since this is COVID-19 epidemic, the patient is being evaluated. We will keep her on droplet isolation for then but should the test came back negative, can transfer the patient to regular floor since her clinical presentation is more consistent with pneumonia. We will reassess. Further recommendations to follow depending on the test results and clinical progress. We will recheck CBC. Recheck Chem panel. MD ASHELY Elise/MODAicha /[id number]
[2020-01-01] VITALS (13 sets, daily range): BP systolic 123–161; BP diastolic 47–99
[2020-01-01 04:32] LABS: BASOPHILS % 0.4 % (0.0-1.0); EOSINOPHILS % 0.4 % (0.0-6.0); HEMATOCRIT 34.9 % (34.2-44.1); HEMOGLOBIN 11.2 g/dL (12.0-16.0); LYMPHOCYTES # (AUTO) 1.9 (1.0-3.2); LYMPHOCYTES % 19.4 % (18.0-39.1); MEAN CORPUSCULAR HEMOGLOBIN 28.9 pg (28-32); MEAN CORPUSCULAR HGB CONC 32.1 g/dL (31-35); MEAN CORPUSCULAR VOLUME 89.9 fL (81-99); MONOCYTES # (AUTO) 0.8 (0.2-0.8); MONOCYTES % 7.9 % (4.4-11.3); NEUTROPHILS # (AUTO) 6.9 (2.1-6.9); NEUTROPHILS % 71.1 % (38.7-80.0); PLATELET COUNT 152 x10e3/uL (140-360); RED BLOOD COUNT 3.88 x10e6/uL (3.6-5.1); RED CELL DISTRIBUTION WIDTH 16.2 % (11.7-14.4)
[2020-01-01 04:52] LABS: ALANINE AMINOTRANSFERASE 18 IU/L (0-55); ALBUMIN 2.5 g/dL (3.5-5.0); ALBUMIN/GLOBULIN RATIO 0.7 (0.8-2.0); ALKALINE PHOSPHATASE 69 IU/L (40-150); ANION GAP 11.3 mmol/L (8-16); BLOOD UREA NITROGEN 17 mg/dL (7-26); BUN/CREATININE RATIO 23 (6-25); CARBON DIOXIDE 22 mmol/L (22-29); CHLORIDE 110 mmol/L (98-107); CREATININE, SERUM 0.73 mg/dL (0.57-1.11); EST GLOMERULAR FILTRATION RATE > 60 ML/MIN (60-); GLUCOSE 100 mg/dL (74-118); POTASSIUM 3.3 mmol/L (3.5-5.1); SODIUM 140 mmol/L (136-145)
[2020-01-01 04:59] LABS: CREATINE KINASE MB 5.2 ng/mL (0-5.0)
[2020-01-01] MEDS: ATORVASTATIN 40 MG TAB PO SCH (05:20)
[2020-01-01 06:15] LABS: CHOL/HDL RATIO 5.5 (3.0-3.6)
[2020-01-01 06:33] LABS: THYROID STIMULATING HORMONE 1.712 uIU/mL (0.350-4.940)
--- NOTE | 2020-01-01 07:00 | NUR ---
Received patient lying in bed with eyes open. Respiration even and unlabored without SOB. Call light in reach.
--- NOTE | 2020-01-01 07:14 | Diagnostic Imaging Report ---
EXAMINATION: CHEST SINGLE (PORTABLE) INDICATION: PNEUMONIA COMPARISON: CT Chest 12/31/2019. FINDINGS: TUBES and LINES: None. LUNGS: Lungs are well inflated. Consolidative opacity in the right medial lung base. Increasing left lower lung zone opacity. PLEURA: No pleural effusion or pneumothorax. HEART AND MEDIASTINUM: The cardiomediastinal silhouette is unremarkable. BONES AND SOFT TISSUES: No acute osseous lesion. Soft tissues are unremarkable. UPPER ABDOMEN: No free air under the diaphragm. IMPRESSION: Lower lung zone opacities, right greater than left, compatible with pneumonia. Signed by: Dr. Radha Hill MD on 01/01/2020 7:11 AM
--- NOTE | 2020-01-01 07:40 | NUR ---
Patient is to transfer to room 198 as ordered. Report given to Dave Narayanan RN. Transported patient to room 198 via wheelchair with all personal belongings taken.
[2020-01-01] MEDS: FAMOTIDINE 20 MG/2 ML VIAL IV SCH ×2 (08:37→18:17)
[2020-01-01] MEDS: PRASUGREL 10 MG TAB PO SCH (08:37)
[2020-01-01] MEDS: METOPROLOL TARTRATE 50 MG TAB PO SCH ×2 (08:37→18:17)
[2020-01-01] MEDS: ASPIRIN 81 MG ENTERIC COATED PO SCH (08:37)
[2020-01-01] MEDS: AZITHROMYCIN 500MG/NS 250 ML 250 ML IV SCH (13:53)
--- NOTE | 2020-01-01 15:05 | Progress Note ---
DATE: SUBJECTIVE: The patient feels much better. She is not having any fever. She has minimal cough and minimal dyspnea. PHYSICAL EXAMINATION: VITAL SIGNS: The blood pressure is 154/70 and the saturation is 97%. The pulse is 62. HEENT: Shows no facial swelling or erythema. CARDIAC: Reveals regular rate and rhythm with normal S1 and S2. LUNGS: Auscultation of lungs reveals clear breath sounds bilaterally. There is no wheezing. ABDOMEN: Soft and nontender. There is no rebound or guarding. EXTREMITIES: Shows no leg edema or calf tenderness. No cyanosis or clubbing. LABORATORY DATA: CBC is within normal limits. The BUN to creatinine is normal. The electrolytes are normal. Troponin I is mildly elevated at 4.15. IMPRESSION: 1. Community-acquired pneumonia. 2. Acute kidney injury. 3. Coronary artery disease. 4. Hypertension. PLAN: 1. Continue current antibiotics. 2. Out of bed as tolerated. 3. Consider Cardiology evaluation. 4. Replace potassium. Molina Thao MD [facility]/OTILIOL /[id number]
[2020-01-01] MEDS: CEFTRIAXONE SOD 1 GM/NS 50 ML 50 ML IV SCH (18:17)
[2020-01-02] VITALS: BP 120/82
--- NOTE | 2020-01-02 03:00 | NUR ---
RECEIVED PATIENT FROM [facility] IN STABLE CONDITION, NO SIGNS OF DISTRESS NOTED. BED IS IN LOW POSITION, BOTH SIDE RAILS ARE UP, CALL LIGHT IS WITHIN EASY REACH, WILL CONTINUE TO MONITOR.
[2020-01-02 04:00] VITALS: BP 172/61
[2020-01-02] MEDS: ATORVASTATIN 40 MG TAB PO SCH (05:43)
[2020-01-02 05:51] LABS: BASOPHILS % 0.5 % (0.0-1.0); EOSINOPHILS # (AUTO) 0.2 (0.0-0.4); EOSINOPHILS % 3.7 % (0.0-6.0); HEMATOCRIT 37.5 % (34.2-44.1); HEMOGLOBIN 11.9 g/dL (12.0-16.0); LYMPHOCYTES # (AUTO) 1.5 (1.0-3.2); LYMPHOCYTES % 26.1 % (18.0-39.1); MEAN CORPUSCULAR HEMOGLOBIN 29.3 pg (28-32); MEAN CORPUSCULAR HGB CONC 31.7 g/dL (31-35); MEAN CORPUSCULAR VOLUME 92.4 fL (81-99); MONOCYTES # (AUTO) 0.6 (0.2-0.8); MONOCYTES % 9.3 % (4.4-11.3); NEUTROPHILS # (AUTO) 3.5 (2.1-6.9); NEUTROPHILS % 59.9 % (38.7-80.0); PLATELET COUNT 160 x10e3/uL (140-360); RED BLOOD COUNT 4.06 x10e6/uL (3.6-5.1); RED CELL DISTRIBUTION WIDTH 16.1 % (11.7-14.4)
[2020-01-02 06:19] LABS: ALANINE AMINOTRANSFERASE 21 IU/L (0-55); ALBUMIN 2.5 g/dL (3.5-5.0); ALBUMIN/GLOBULIN RATIO 0.7 (0.8-2.0); ALKALINE PHOSPHATASE 63 IU/L (40-150); ANION GAP 13.4 mmol/L (8-16); BLOOD UREA NITROGEN 15 mg/dL (7-26); BUN/CREATININE RATIO 22 (6-25); CALCIUM 8.7 mg/dL (8.4-10.2); CARBON DIOXIDE 20 mmol/L (22-29); CHLORIDE 109 mmol/L (98-107); CREATINE KINASE 367 IU/L (29-168); CREATININE, SERUM 0.69 mg/dL (0.57-1.11); EST GLOMERULAR FILTRATION RATE > 60 ML/MIN (60-); GLUCOSE 87 mg/dL (74-118); POTASSIUM 3.4 mmol/L (3.5-5.1); SODIUM 139 mmol/L (136-145)
--- NOTE | 2020-01-02 07:10 | NUR ---
RCD PT AT BED PT IS ALERT AND ORIENTED PT RESTING ON BED IV PATENT BY SALINE FLUSH BED LOW AND LOCKED CALL LIGHT IN REACH
[2020-01-02 08:21] VITALS: BP 167/64
[2020-01-02 08:45] VITALS: BP 167/64
[2020-01-02] MEDS: METOPROLOL TARTRATE 50 MG TAB PO SCH (08:59)
[2020-01-02] MEDS: ASPIRIN 81 MG ENTERIC COATED PO SCH (08:59)
[2020-01-02] MEDS: PRASUGREL 10 MG TAB PO SCH (08:59)
[2020-01-02] MEDS: FAMOTIDINE 20 MG/2 ML VIAL IV SCH (08:59)
[2020-01-02] MEDS ORDERED: CEFDINIR300 MG PO (09:22)
[2020-01-02] MEDS ORDERED: ZITHROMAX500 MG PO (09:22)
[2020-01-02] MEDS ORDERED: POTASSIUM CHLORIDE 20 MEQ TAB CR PO NR (09:45)
[2020-01-02] MEDS ORDERED: CEFTRIAXONE SOD 1 GM/NS 50 ML 50 ML IV SCH (10:00)
[2020-01-02] MEDS ORDERED: SODIUM CHLORIDE 0.9% 50ML 50 ML ONE (10:08)
[2020-01-02] MEDS ORDERED: AZITHROMYCIN 500MG/NS 250 ML 250 ML IV SCH (10:30)
--- NOTE | 2020-01-02 11:23 | Progress Note ---
DATE: SUBJECTIVE: The patient feels much better. She is eager to go home. She does not have cough or fevers. OBJECTIVE: VITAL SIGNS: The blood pressure is 167/64, saturation is 98%. The pulse is 67. HEENT: Shows no facial swelling or erythema. CARDIAC: Reveals regular rate and rhythm with a normal S1 and S2. LUNGS: Auscultation of lungs reveals rhonchus breath sounds bilaterally. There is no wheezing. ABDOMEN: Soft, nontender. There is no rebound or guarding. EXTREMITIES: Show no leg edema or calf tenderness. IMPRESSION: 1. Community-acquired pneumonia. 2. Acute kidney injury. 3. Hypertension. 4. Coronary artery disease. PLAN: 1. Complete antibiotics as an outpatient. 2. Arrange for discharge home. MD SELENA Marinelli/OTILIOL /[id number]
[2020-01-02 11:58] VITALS: BP 174/66
--- NOTE | 2020-01-02 13:27 | NUR ---
PATIENT WENT HOME IN SAFE CONDITION WITH HER SON
--- NOTE | 2020-01-02 20:14 | Discharge Summary ---
ADMISSION DIAGNOSES: 1. Right middle and lower lobe pneumonia, present on admission with severe sepsis. 2. urinary tract infection with severe sepsis, present on admission. 3. Coronary artery disease with percutaneous coronary intervention. 4. Hypertension. 5. Hyperlipidemia. 6. Gastroesophageal reflux disease. 7. Elevated BNP. 8. Rhabdomyolysis. DISCHARGE DIAGNOSES: 1. Right middle and lower lobe pneumonia present on admission with severe sepsis. 2. urinary tract infection with severe sepsis, present on admission. 3. Coronary artery disease with percutaneous coronary intervention. 4. Hypertension. 5. Hyperlipidemia. 6. Gastroesophageal reflux disease. 7. Elevated BNP. 8. Rhabdomyolysis. 9. Rule out coronavirus disease. HISTORY: Hypertension, hyperlipidemia, CAD with PCI, NC, and GERD. SURGICAL HISTORY: Tonsillectomy, appendectomy, PCI. FAMILY HISTORY: The patient's mom, dad, sister and brother have cancer. SOCIAL HISTORY: Noncontributory. HOSPITAL COURSE: A 74-year-old female, admits with complaints of weakness and shaking since Friday or Friday. She admits to falling on Friday. She denies productive cough, fever, shortness of breath, dysuria, or hematuria. She came to the ER since the symptoms did not get better. On admission, lactate was 2.4. Her T-max was 100.7. She was started on Zithromax and Rocephin. CT of the brain was negative. Chest x-ray showed bibasilar patchy opacities. CT of the chest showed right middle and lower lobe consolidative pneumonia. Urine culture preliminary was negative. Blood culture was negative. Joseph virus was negative. CK on admission was 1977, so IV fluids were given and CK trended down. The patient is feeling better, ready to go home, not short of breath and not requiring oxygen use. She was given more antibiotics at time of discharge. Pulmonology agrees with plan as well as Infectious Disease. She will follow up with primary care in 1 to 2 weeks. The patient understands discharge instructions and agrees with plan. Vital signs are stable. The patient is afebrile. Dictated by Gladis Garrison NP Jorge Conley MD [facility]/MODL /[id number]
== END 2020-01-02 13:27 | disposition home or self-care (01) | DRG 871 ==
LOC: ER 10:49 → ERHOLD 13:43 → IMCU 17:39 → MED/SURG2 01-02 02:28
PROVIDERS: ADMIT Internal Medicine; ATTEND Internal Medicine
DX: A41.9 Sepsis, unspecified organism (principal); J18.9 Pneumonia, unspecified organism; M62.82 Rhabdomyolysis; N17.9 Acute kidney failure, unspecified; Z11.59 Encounter for screening for other viral diseases; R65.20 Severe sepsis without septic shock; I25.10 Atherosclerotic heart disease of native coronary artery without angina pectoris; I10 Essential (primary) hypertension; E78.5 Hyperlipidemia, unspecified; K21.9 Gastro-esophageal reflux disease without esophagitis; Z03.818 Encounter for observation for suspected exposure to other biological agents ruled out; I25.2 Old myocardial infarction; E87.6 Hypokalemia; Z98.61 Coronary angioplasty status
CPT/HCPCS: 36415; 70450; 71045; 71250; 80053; 80061; 81001; 82140; 82550; 82553; 83036; 83605; 83735; 83880; 84443; 84484; 85025; 85610; 85730; 87040; 87086; 87635; 93005; 93306; 99285; J0360; J0456; J0696; J2405; J2543; J7030